=== PATIENT | male | born 1945 | race Caucasian/White ===

== ENCOUNTER 2017-04-15 14:10 | Inpatient (IN) ==
[2017-04-15 15:09] LABS: Basophils % 0.5 %; Eosinophils # 0.2 K/mcL (0.0-0.6); Eosinophils % 2.7 %; Hematocrit 34.7 % (37.5-50.1); Hemoglobin 11.2 g/dL (12.9-16.9); Immature Granulocytes % 0.3 % (0-4); Immature Platelets 2.5 % (1.1-6.1); Lymphocytes # 2.1 K/mcL (0.6-4.6); Lymphocytes % 28.1 %; Mean Corpuscular HGB Conc 32.3 g/dL (31.6-35.5); Mean Corpuscular Hemoglobin 29.8 pg (28.0-33.3); Mean Corpuscular Volume 92.3 fL (83.0-100.0); Mean Platelet Volume 9.6 fL (9.4-12.4); Monocytes # 0.6 K/mcL (0.0-1.3); Monocytes % 8.4 %; Neutrophils # 4.4 K/mcL (1.6-8.9); Platelet Count 258 K/mcL (140-400); Red Blood Count 3.76 M/mcL (4.19-5.50); Red Cell Distribution Width 12.6 % (11.5-14.5)
--- NOTE | 2017-04-15 15:10 | Emergency Department Note ---
Disposition Clinical Impression: Expressive aphasia, ROCHELLE (acute kidney injury) Anemia Qualifiers: Anemia type: unspecified type Qualified Code(s): D64.9 - Anemia, unspecified Disposition: Admitted As Inpatient Condition: Good [facility] - Forms: ED Satisfaction Letter Time of Disposition: 16:16 Neuro HPI - General Chief Complaint: ED Neuro Symptoms/Deficit Stated Complaint: CVA Time Seen by Provider: 04/15/17 14:20 Source: patient, EMS Mode of arrival: EMS Limitations: physical limitation Nursing Notes Reviewed: Yes Vital Signs Reviewed: Yes - History of Present Illness HPI Narrative: Patient is a 71-year-old male with previous stroke that has left him with right- sided upper and lower extremity weakness. He presents today as a transfer from the [facility] due to expressive aphasia and possible facial droop on the right side of his face.. Patient's last known well was around 2200 last night, which is greater than 12 hours prior to arrival. On arrival, patient is in no distress. He is having expressive aphasia, but he is able to understand all questions and shake head yes and no to questioning. He currently denies any chest pain, shortness breath, nausea, vomiting, fevers, diarrhea. He denies any numbness, tingling, weakness. He does admit to not being able to form words. He denies any increase in his right-sided weakness. He denies any weakness in any other limb. - Related Data Home Medications: Home Medications Medication Instructions Recorded Confirmed Aspirin 325 mg PO DAILY 11/11/15 11/11/15 Docusate Sodium [Colace] 100 mg PO BID PRN 11/11/15 11/11/15 Gabapentin [Neurontin] 300 mg PO TID 11/11/15 11/11/15 Lisinopril [Zestril] 40 mg PO DAILY 11/11/15 11/11/15 Magnesium Oxide [Magnesium] 400 mg PO DAILY 11/11/15 11/11/15 Metoprolol Tartrate [Lopressor] 25 mg PO BID 11/11/15 11/11/15 Ranitidine HCl [Zantac] 150 mg PO BID 11/11/15 11/11/15 Terazosin [Hytrin] 5 mg PO HS 11/11/15 11/11/15 amLODIPine [Norvasc] 10 mg PO DAILY 11/11/15 11/11/15 Allergies/Adverse Reactions: Allergies Allergy/AdvReac Type Severity Reaction Status Date / Time No Known Allergies Allergy Verified 11/11/15 02:22 All systems ED: reviewed and negative except as stated. Constitutional: Denies: fever Cardiovascular: Denies: chest pain Respiratory: Denies: dyspnea Gastrointestinal: Denies: abdominal pain, nausea, vomiting, diarrhea, constipation Neurological: Reports: other. Denies: headache, weakness, numbness, confusion Past Medical History - Past Medical History Attestation: Yes The following information was validated with the patient. Source: patient, old records reviewed Medical history: Reports: coronary artery disease, CVA, diabetes, GERD, hypertension, other Surgical history: Reports: coronary bypass (CABG) - Social History Smoking Status: Unknown if ever smoked Smokeless Tobacco Status: No Alcohol use: Reports: none Drug use: Reports: none Physical Exam - General Limitations: no limitations General appearance: alert, in no apparent distress - Head Head exam: atraumatic, normocephalic, normal inspection - Eye Eye exam: Present: normal appearance, PERRL, EOMI - ENT ENT exam: normal exam, normal oropharynx, mucous membranes moist - Neck Neck exam: Present: normal inspection, full ROM, trachea midline - Chest Chest inspection: Present: normal inspection, symmetric chest wall rise - Respiratory Respiratory exam: Present: normal lung sounds bilaterally - Cardiovascular Cardiovascular exam: Present: regular rate, normal rhythm, normal heart sounds - Abdominal Exam Abdominal exam: Present: soft, Non-Tender. Absent: tenderness, distention, guarding, rebound, rigidity - Extremities Exam Extremities exam: Present: other (Contraction of right upper extremity, weakness of right lower extremity the patient states is baseline. No weakness in left upper or left lower extremity.) - Neurological Exam Neurological exam: Present: alert, CN II-XII intact, other ( No facial droop. No decrease in sensation. Weakness of RUE and RLE that is baseline since previous stroke. ) - Psychiatric Psychiatric exam: Present: normal affect, normal mood - Skin Skin exam: Present: warm, dry, intact, normal color Course Course Narrative: Vitals within normal limits. Physical exam shows right upper extremity contraction and regular charmingly weakness that the patient states is baseline since his previous stroke. No facial droop. No weakness in left upper left lower extremity. Patient does have expressive aphasia but is able to understand all questions and respond appropriately to questioning shaking head yes and no. He is 12+ hours out, not a candidate for TPA at this time. We will obtain basic blood work and CT of the head. We will the likely admit for further stroke workup with recommendation of MR head and MRA neck, dopplers carotids. 16:13 basic blood work shows mild anemia at hemoglobin 11.2. Patient has a chaotic. Troponin negative. CT of the head negative for acute intracranial abnormality. There is chronic small vessel changes and a remote lacunar and basal ganglia infarct. Patient's neuro exam is unchanged from presentation. We will admit to the hospitalist for further workup of stroke and expressive aphasia with recommendation of MR head and MRA neck, dopplers carotids. Head CT 04/15/17 14:21 IMPRESSION: 1. No acute intracranial abnormality. 2. Chronic small vessel ischemic changes and evidence of remote lacunar infarcts in the basal ganglia. D/ / Renny Mijares MD / Renny Mijares MD Interpreting Provider: Renny Mijares MD Vital Signs Temperature 98.7 F 04/15/17 14:11 Pulse Rate 59 04/15/17 14:11 Respiratory Rate 18 04/15/17 14:11 Blood Pressure 148/62 04/15/17 14:11 O2 Sat by Pulse Oximetry 92 04/15/17 14:11 Temperature 98.7 F 04/15/17 14:11 Pulse Rate 59 04/15/17 14:11 Respiratory Rate 18 04/15/17 14:11 Blood Pressure 148/62 04/15/17 14:11 O2 Sat by Pulse Oximetry 92 04/15/17 14:11 Oxygen Delivery Oxygen Delivery Room Air Neuro Symptoms/Deficit - MDM Narrative Medical decision making narrative: basic blood work shows mild anemia at hemoglobin 11.2. Patient has a chaotic. Troponin negative. CT of the head negative for acute intracranial abnormality. There is chronic small vessel changes and a remote lacunar and basal ganglia infarct. Patient's neuro exam is unchanged from presentation. We will admit to the hospitalist for further workup of stroke and expressive aphasia with recommendation of MR head and MRA neck, dopplers carotids. - Lab Data Lab results reviewed: Yes I reviewed the patient's lab results. Result diagrams: 04/15/17 15:03 04/15/17 15:03 Lab Results 04/15/17 04/15/17 04/15/17 Range/Units 14:21 15:03 15:03 WBC 7.4 (4.3-11.1) K/mcL RBC 3.76 L (4.19-5.50) M/mcL Hgb 11.2 L (12.9-16.9) g/dL Hct 34.7 L (37.5-50.1) % MCV 92.3 (83.0-100.0) fL MCH 29.8 (28.0-33.3) pg MCHC 32.3 (31.6-35.5) g/dL RDW 12.6 (11.5-14.5) % Plt Count 258 (140-400) K/mcL MPV 9.6 (9.4-12.4) fL Immature Gran % 0.3 (0-4) % Seg Neutrophils % 60.0 % Lymphocytes % 28.1 % Monocytes % 8.4 % Eosinophils % 2.7 % Basophils % 0.5 % Neutrophils # 4.4 (1.6-8.9) K/mcL Lymphocytes # 2.1 (0.6-4.6) K/mcL Monocytes # 0.6 (0.0-1.3) K/mcL Eosinophils # 0.2 (0.0-0.6) K/mcL Basophils # 0.0 (0.0-0.2) K/mcL Immature Plt Fraction 2.5 (1.1-6.1) % PT 12.0 (9.4-12.1) Seconds INR 1.1 APTT 32.7 (26.0-36.0) Seconds Sodium (136-145) mEq/L Potassium (3.5-4.5) mEq/L Chloride (98-109) mEq/L Carbon Dioxide (19-29) mEq/L BUN (8-26) mg/dL Creatinine (0.72-1.25) mg/dL Est GFR ( Amer) (> 60) Est GFR (Non-Af Amer) (> 60) BUN/Creatinine Ratio (6-26) Glucose (70-99) mg/dL POC Glucose 187 H (58-89) Calculated Osmolality (280-300) Calcium (8.6-10.8) mg/dL Troponin I (0-0.03) ng/mL 04/15/17 04/15/17 Range/Units 15:03 15:03 WBC (4.3-11.1) K/mcL RBC (4.19-5.50) M/mcL Hgb (12.9-16.9) g/dL Hct (37.5-50.1) % MCV (83.0-100.0) fL MCH (28.0-33.3) pg MCHC (31.6-35.5) g/dL RDW (11.5-14.5) % Plt Count (140-400) K/mcL MPV (9.4-12.4) fL Immature Gran % (0-4) % Seg Neutrophils % % Lymphocytes % % Monocytes % % Eosinophils % % Basophils % % Neutrophils # (1.6-8.9) K/mcL Lymphocytes # (0.6-4.6) K/mcL Monocytes # (0.0-1.3) K/mcL Eosinophils # (0.0-0.6) K/mcL Basophils # (0.0-0.2) K/mcL Immature Plt Fraction (1.1-6.1) % PT (9.4-12.1) Seconds INR APTT (26.0-36.0) Seconds Sodium 142 (136-145) mEq/L Potassium 4.4 (3.5-4.5) mEq/L Chloride 103 (98-109) mEq/L Carbon Dioxide 30 H (19-29) mEq/L BUN 35 H (8-26) mg/dL Creatinine 1.43 H (0.72-1.25) mg/dL Est GFR ( Amer) 59 L (> 60) Est GFR (Non-Af Amer) 49 L (> 60) BUN/Creatinine Ratio 24 (6-26) Glucose 177 H (70-99) mg/dL POC Glucose (58-89) Calculated Osmolality 306 H (280-300) Calcium 9.9 (8.6-10.8) mg/dL Troponin I 0.01 (0-0.03) ng/mL - Radiology Data Radiology results reviewed: Yes I reviewed the patient's radiology results. Head CT 04/15/17 14:21 IMPRESSION: 1. No acute intracranial abnormality. 2. Chronic small vessel ischemic changes and evidence of remote lacunar infarcts in the basal ganglia. D/ / Renny Mijares MD / Renny Mijares MD Interpreting Provider: Renny Mijares MD Stroke Scale - Level of Consciousness LOC: Alert - LOC Questions LOC Questions: Answers both correctly - LOC Commands LOC Commands: Performs both correctly - Best Gaze Best Gaze: Normal - Visual Visual: No visual loss - Facial Palsy Facial Palsy: Normal - Motor Arms Motor Arm-Left: No drift for 10 seconds Motor Arm-Right: UN Amputation, joint fusion (explain) - Motor Legs Motor Leg-Left: No drift for 5 seconds Motor Leg-Right: No drift for 5 seconds - Limb Ataxia Limb Ataxia: Absent of affected limb too weak to perform exam - Sensory Sensory: Normal - Best Language Best Language: Severe aphasia. Examiner CAN NOT identify pictures from response - Dysarthria Dysarthria: Severe, slurred speech unintelligible or mute - Extinction and Inattention Extinction and Inattention: Normal - NIHSS Total Score NIHSS Total Score: 4 TPA Checklist - LKW: 3-4.5 hrs Add. Warnings/Precautions Patient/family understanding: The patient/family members have been counseled and understood the risk, benefit , and alternatives of treatment. Critical Care Time Critical Care Time: Yes Total Critical Care Time: 35 Attestation: cc time 35 min S.B.A.R. - S.B.A.R. Situation: Demographics, MOA Background: Presenting Complaint, Relevant PMH, Meds, & Allergies Assessment: Vital Signs, Course and respsone to treatment, Exam Concerns, Patient/Family Expectation, Pertinant Lab Results Recommendation: Barrier(s) to disposition, Recommendation based on pending studies, treatments, or consults S.B.A.R. Report Given to: Dr. Bae [email or web address].ASandi Repor Time: 16:16 Attestation Statement - Attestation Attestation: Patient was seen with resident physician. I reviewed the history, physical, assessment and plan, and agree with the findings. I also personally evaluated this patient and had [id number] time with this patient. 71-year-old male presents to the emergency department for the [facility] with worsening stroke symptoms. Patient apparently has had a history of stroke in the past and has right-sided deficiencies in the right upper and lower extremity. But today he developed an expressive aphasia and some droop to the right face. He came to the ED however 12 hours after he initially had symptoms which is out of the TPA window. Patient himself is unable to provide any significant history. On examination vital signs are stable. ENT is unremarkable pupils are reactive. Does have some facial droop on the right side, and an expressive aphasia he answers some questions and can follow commands. Heart regular rhythm and rate. Lungs clear. Abdomen soft and nontender. Extremities patient has flexion contractures of the right upper and lower extremities. But moves all and can follow commands appropriately. Was unable to evaluate for strength because of prior injury. Neurologically as above should be noted that the patient cannot really communicate but he does follow commands and appears alert. ED course head CT scan does not show acute findings. Labs are unremarkable. Vital signs remained stable. Patient not meet criteria for stroke alert. Hospitalist was notified that he will require hospitalization for further evaluation and neurologic workup. They agreed to accept patient for inpatient management. Agree with the resident physician assessment and plan.
[2017-04-15 15:15] LABS: INR 1.1
[2017-04-15 15:18] LABS: Activated Partial Thrombo Time 32.7 Seconds (26.0-36.0)
[2017-04-15 15:21] LABS: Calcium 9.9 mg/dL (8.6-10.8); Potassium 4.4 mEq/L (3.5-4.5)
[2017-04-15] MEDS ORDERED: Acetaminophen 325 MG TABLET PO PRN ×2 (19:26→21:16)
[2017-04-15] MEDS ORDERED: Naloxone 0.4 MG/ML INJ IVP PRN (19:26)
[2017-04-15] MEDS ORDERED: Ondansetron ODT 4 MG TAB.RAPDIS SL PRN (19:26)
[2017-04-15] MEDS ORDERED: *HR* Metoprolol 5 MG/5 ML VIAL IVP PRN (19:40)
[2017-04-15] MEDS ORDERED: Dextrose Gel 15 GM PO PRN ×2 (20:07)
[2017-04-15] MEDS ORDERED: *HR* Dextrose 50 % in Water (Syg) 50 ML SYRINGE IVP PRN (20:07)
[2017-04-15] MEDS ORDERED: D5% in Water 1,000 ML IVC PRN (20:07)
--- NOTE | 2017-04-15 20:15 | Internal Med History&Physical ---
Date of Encounter: 04/15/17 Time of Encounter: 20:08 Assessment and Plan (1) ROCHELLE (acute kidney injury) Current visit: Yes Status: Acute Patient with BUN 35 and Creatinine of 1.43, up from previous normal values. Patient also reportedly with low blood pressure at [facility] this morning. Likely secondary to dehydration. Will hydrate with 0.9NS at 100mL/hr over night. Check UA with reflex culture and micro. Recheck chemistry in the morning. (2) Type 2 diabetes mellitus Current visit: Yes Status: Acute Check Hg A1c check blood sugars ACHS Sliding scale correction insulin ACHS hypoglycemic protocol. Qualifiers: Diabetes mellitus complication status: with unspecified complications Diabetes mellitus meterman insulin use: with meterman use Qualified Code(s) : E11.8 - Type 2 diabetes mellitus with unspecified complications; Z79.4 - assisted (current) use of insulin (3) History of CVA (cerebrovascular accident) Current visit: Yes Status: Chronic Patient with history of CVA with right sided weakness, right sided facial droop and expressive aphasia. Confirmed this is his baseline with patient's and [facility] staff. Will continue his diet of pureed food and honey-thickened liquid. Aspiration precautions. PT/OT and speech therapy consult. Will continue with MRI just to confirm no new infarct as there was a question of new symptoms on initial presentation. (4) Expressive aphasia Current visit: Yes Status: Acute Patient with expressive aphasia, this has been confirmed to be his baseline by his and the staff at the [facility]. Continue home diet of pureed food and honey thickened liquids. Aspiration precautions. Speech therapy evaluation. (5) DVT prophylaxis Current visit: Yes Status: Acute anti-embolic stockings heparin 5000u SQ TID Internal Medicine - H&P: HPI Chief complaint: new expressive aphasia Admitted From: Emergency Dept Plans for Post Hospital Care: Home History of present illness: Mr. Watson is a 71 year old male with hypertension, hyperlipidemia, type 2 diabetes, coronary artery disease status post CABG, history of CVA with right- sided residual weakness, presented to the emergency department today from long- term care at the [place] where he resides with no expressive aphasia. Last known was at 10 PM last evening. Patient is unable to form words, but it is clear he is attempting to and does verbalize sounds. He is able to answer questions with yes or no answers. Patient denies any other complaints at this time. Evaluation emergency department revealed acute kidney injury with creatinine of 1.43 up from previous values normal. Troponin was normal at 0.01. Head CT showed no acute intracranial abnormality, chronic small vessel ischemic changes , and evidence of remote lacunar infarcts in the basal ganglia. On exam, patient is alert, attempting to form words to answer my questions, but unable to. He is able to answer yes and no by shaking his head. Heart has regular rate and rhythm, lungs are clear to auscultation. Right arm is contracted and atrophied, consistent with his history of CVA with right-sided residual. Pupils are equal and reactive to light. Patient does have right sided facial droop. Update: Patient's informed nurse that this is patient's baseline. Nurse called [facility] and confirmed with staff that patient has expressive aphasia at baseline as residual from previous stroke. [facility] reported today's nurse was new and felt patient was more lethargic and his blood pressure was low at 80s/ 40s which was reason to call squad. Will continue with MR of head/brain to confirm no new infarcts, but will cancel consult to neurology. Patient will be able to eat pureed and honey thickened liquid diet. Will treat and work up his ROCHELLE. Past Med Surg Social Fam HX - Past Medical History Medical history: coronary artery disease, CVA, diabetes, GERD, hypertension, other Psychiatric history: no psych history - Past Surgical History Surgical History: coronary bypass (CABG) - Social History Smoking Status: Unknown if ever smoked Smokeless Tobacco Status: No Alcohol use: none Drug use: none - Family History Mother History Unknown: Yes Internal Medicine - H&P: Meds Gabapentin [Neurontin] 600 mg PO TID 11/11/15 [History] Magnesium Oxide [Magnesium] 400 mg PO DAILY 11/11/15 [History] Metoprolol Tartrate [Lopressor] 25 mg PO BID 11/11/15 [History] Acetaminophen 650 mg PO TID PRN MDD 3000MG 04/15/17 [History] Aspirin [Lo-Dose Aspirin EC] 81 mg PO DAILY 04/15/17 [History] Balsam [place] Oil [Venelex Ointment] 1 appl TP QID 04/15/17 [History] Cholecalciferol (D-3) [Vitamin D] 1,000 unit PO DAILY 04/15/17 [History] Clotrimazole 1% CRM [Lotrimin 1%] 1 appl TP BID 04/15/17 [History] Ferrous Sulfate [Iron] 325 mg PO BID 04/15/17 [History] Insulin ASPART [Novolog Flexpen] 2 - 6 unit SQ TID PRN 04/15/17 [History] Insulin Glargine,Hum.rec.anlog [Lantus Solostar] 24 unit SQ DAILY 04/15/17 [ History] Lisinopril [Zestril] 5 mg PO DAILY 04/15/17 [History] Magnesium Hydroxide [Milk of Magnesia] 30 ml PO DAILY PRN 04/15/17 [History] Metformin HCl [Glucophage] 1,000 mg PO BID 04/15/17 [History] Multivitamin [Multi-Day Vitamins] 1 tab PO DAILY 04/15/17 [History] Nystatin POWDER [Nystop] 1 appl TP BID 04/15/17 [History] Ondansetron HCl [Zofran] 4 mg PO Q8H PRN 04/15/17 [History] Rosuvastatin [Crestor] 20 mg PO HS 04/15/17 [History] Selenium Sulfide 1 appl TP DAILY PRN 04/15/17 [History] Sennosides/Docusate Sodium [Senna-Docusate Sodium Tablet] 1 tab PO HS 04/15/17 [ History] Tramadol HCl [Ultram] 50 mg PO QID PRN 04/15/17 [History] metFORMIN [Glucophage] 500 mg PO 1200 04/15/17 [History] Allergies No Known Allergies Allergy (Verified 11/11/15 02:22) ROS unobtainable: other All Systems PM: A 10-system review of systems was performed and is negative for pertinent findings except as documented above in the HPI. Review of systems: Detailed review of systems is unobtainable due to patient's inability to 4 months, he is able to nod yes or no to questions, and does not endorse any problems besides the inability to express words at this time. - Constitutional Vitals: Temp Pulse Resp BP Pulse Ox 97.9 F 57 16 134/57 97 04/15/17 18:48 04/15/17 18:48 04/15/17 18:48 04/15/17 18:48 04/15/17 18:33 General appearance: Present: pleasant, no acute distress - Head Head exam: Present: atraumatic, normocephalic - Eye Eye exam: Present: PERRL, conjuntiva pink, sclera anicteric Pupils: Present: PERRL - Neck Neck exam general surgery: Present: supple, trachea midline. Absent: lymphadenopathy - Respiratory Respiratory exam: Present: CTAB. Absent: accessory muscle use, rales, rhonchi, wheezes - Cardiovascular Cardiovascular exam: Present: RRR, +S1, +S2. Absent: diastolic murmur, gallop, rubs, systolic murmur - GI/Abdominal GI/Abdominal exam: Present: normal bowel sounds, soft, no peritoneal signs. Absent: distended, tenderness - Extremities Exam Extremities exam: Present: warm, radial pulses palpable and symetrical. Absent : calf tenderness, cyanotic, pedal edema - Neurological Exam Neurological exam: Present: facial droop, speech deficit. Absent: strengths equal and symetr throughout - Expanded Neurological Exam Neurological exam expanded: Present: expressive aphasia Speech: Present: expressive aphasia Cranial Nerves: EOM's intact PM: Normal Cerebellar function: finger to nose: Abnormal Right Neuro motor strength exam: LUE: 5, RUE: 2/1 - Skin Skin exam: Present: dry, intact Internal Med - H&P Results - Labs CBC & Chem 7: 04/15/17 15:03 04/15/17 15:03 Labs: All Lab Results (24 Hours) 04/15/17 04/15/17 04/15/17 Range/Units 14:21 15:03 15:03 WBC 7.4 (4.3-11.1) K/mcL RBC 3.76 L (4.19-5.50) M/mcL Hgb 11.2 L (12.9-16.9) g/dL Hct 34.7 L (37.5-50.1) % MCV 92.3 (83.0-100.0) fL MCH 29.8 (28.0-33.3) pg MCHC 32.3 (31.6-35.5) g/dL RDW 12.6 (11.5-14.5) % Plt Count 258 (140-400) K/mcL MPV 9.6 (9.4-12.4) fL Immature Gran % 0.3 (0-4) % Seg Neutrophils % 60.0 % Lymphocytes % 28.1 % Monocytes % 8.4 % Eosinophils % 2.7 % Basophils % 0.5 % Neutrophils # 4.4 (1.6-8.9) K/mcL Lymphocytes # 2.1 (0.6-4.6) K/mcL Monocytes # 0.6 (0.0-1.3) K/mcL Eosinophils # 0.2 (0.0-0.6) K/mcL Basophils # 0.0 (0.0-0.2) K/mcL Immature Plt Fraction 2.5 (1.1-6.1) % PT 12.0 (9.4-12.1) Seconds INR 1.1 APTT 32.7 (26.0-36.0) Seconds Sodium (136-145) mEq/L Potassium (3.5-4.5) mEq/L Chloride (98-109) mEq/L Carbon Dioxide (19-29) mEq/L BUN (8-26) mg/dL Creatinine (0.72-1.25) mg/dL Est GFR ( Amer) (> 60) Est GFR (Non-Af Amer) (> 60) BUN/Creatinine Ratio (6-26) Glucose (70-99) mg/dL POC Glucose 187 H (58-89) Calculated Osmolality (280-300) Calcium (8.6-10.8) mg/dL Troponin I (0-0.03) ng/mL 04/15/17 04/15/17 Range/Units 15:03 15:03 WBC (4.3-11.1) K/mcL RBC (4.19-5.50) M/mcL Hgb (12.9-16.9) g/dL Hct (37.5-50.1) % MCV (83.0-100.0) fL MCH (28.0-33.3) pg MCHC (31.6-35.5) g/dL RDW (11.5-14.5) % Plt Count (140-400) K/mcL MPV (9.4-12.4) fL Immature Gran % (0-4) % Seg Neutrophils % % Lymphocytes % % Monocytes % % Eosinophils % % Basophils % % Neutrophils # (1.6-8.9) K/mcL Lymphocytes # (0.6-4.6) K/mcL Monocytes # (0.0-1.3) K/mcL Eosinophils # (0.0-0.6) K/mcL Basophils # (0.0-0.2) K/mcL Immature Plt Fraction (1.1-6.1) % PT (9.4-12.1) Seconds INR APTT (26.0-36.0) Seconds Sodium 142 (136-145) mEq/L Potassium 4.4 (3.5-4.5) mEq/L Chloride 103 (98-109) mEq/L Carbon Dioxide 30 H (19-29) mEq/L BUN 35 H (8-26) mg/dL Creatinine 1.43 H (0.72-1.25) mg/dL Est GFR ( Amer) 59 L (> 60) Est GFR (Non-Af Amer) 49 L (> 60) BUN/Creatinine Ratio 24 (6-26) Glucose 177 H (70-99) mg/dL POC Glucose (58-89) Calculated Osmolality 306 H (280-300) Calcium 9.9 (8.6-10.8) mg/dL Troponin I 0.01 (0-0.03) ng/mL - Diagnostic Studies CT scan - head Additional comments: Head CT 04/15/17 14:21 IMPRESSION: 1. No acute intracranial abnormality. 2. Chronic small vessel ischemic changes and evidence of remote lacunar infarcts in the basal ganglia. D/ / Renny Mijares MD / Renny Mijares MD Interpreting Provider: Renny Mijares MD
[2017-04-15] MEDS: 0.9 % Sodium Chloride 1,000 ML IVC SCH (21:10)
[2017-04-15] MEDS ORDERED: Ondansetron ODT 4 MG TAB.RAPDIS PO PRN (21:16)
[2017-04-16] MEDS ORDERED: Insulin LISPRO 300 UNITS/3 ML VIAL SQ SCH
[2017-04-16 05:40] LABS: Basophils % 0.5 %; Eosinophils # 0.2 K/mcL (0.0-0.6); Eosinophils % 2.3 %; Hematocrit 34.6 % (37.5-50.1); Hemoglobin 11.2 g/dL (12.9-16.9); Immature Granulocytes % 0.3 % (0-4); Lymphocytes # 1.7 K/mcL (0.6-4.6); Lymphocytes % 26.4 %; Mean Corpuscular HGB Conc 32.4 g/dL (31.6-35.5); Mean Corpuscular Hemoglobin 29.9 pg (28.0-33.3); Mean Corpuscular Volume 92.3 fL (83.0-100.0); Mean Platelet Volume 9.8 fL (9.4-12.4); Monocytes # 0.6 K/mcL (0.0-1.3); Monocytes % 8.3 %; Neutrophils # 4.1 K/mcL (1.6-8.9); Platelet Count 215 K/mcL (140-400); Red Blood Count 3.75 M/mcL (4.19-5.50); Red Cell Distribution Width 12.7 % (11.5-14.5); Segmented Neutrophils % 62.2 %
[2017-04-16] MEDS: 0.9 % Sodium Chloride 1,000 ML IVC SCH ×3 (05:49→17:03)
[2017-04-16 05:52] LABS: BUN/Creatinine Ratio 33 (6-26); Blood Urea Nitrogen 32 mg/dL (8-26); Calcium 9.6 mg/dL (8.6-10.8); Carbon Dioxide 29 mEq/L (19-29); Chloride 108 mEq/L (98-109); Glucose 90 mg/dL (70-99); Osmolality,Calculated 302 (280-300); Potassium 4.3 mEq/L (3.5-4.5); Sodium 143 mEq/L (136-145); eGFR For African Americans > 60 (> 60); eGFR For Non-African Americans > 60 (> 60)
[2017-04-16] MEDS ORDERED: traMADol 50 MG TABLET PO PRN (06:04)
[2017-04-16] MEDS: Insulin LISPRO 300 UNITS/3 ML VIAL SQ SCH ×3 (08:06→17:03)
[2017-04-16] MEDS: Multivit/Ca/Min/Fe/FA 1 TAB TABLET PO SCH (09:26)
[2017-04-16] MEDS: Gabapentin 300 MG CAPSULE PO SCH ×3 (09:26→21:14)
[2017-04-16] MEDS: Aspirin Enteric Coated 81 MG Tablet PO SCH (09:26)
[2017-04-16] MEDS: Magnesium Oxide 400 MG TABLET PO SCH (09:27)
[2017-04-16] MEDS: Insulin DETEMIR 100 UNIT/ML X5UNITS SQ SCH (09:27)
[2017-04-16 13:38] LABS: Bilirubin,Urine Negative (Negative); Blood,Urine Negative (Negative); Clarity,Urine Clear (Clear); Color,Urine Yellow (Yellow); Glucose,Urine (UA) 100 mg/dL (Normal); Ketones,Urine Negative (Negative); Leukocyte Esterase,Urine Negative (Negative); Nitrite,Urine Negative (Negative); Protein,Urine Negative (Neg-Trace); Specific Gravity,Urine 1.015 (1.010-1.025); Urobilinogen,Urine Normal (Normal)
--- NOTE | 2017-04-16 15:25 | Electrocardiograph Report ---
[place] [id number] Test Date: 2017-04-15 Pat Name: Norman Watson Department: 102 Room: 3B Gender: M Silo Tender: Michelet : 1945 Requested By: Richard Lawson Order Number: [id number] Reading MD: Yimi Diaz MD Measurements Intervals [place] Rate: 59 P: 44 MN: 261 QRS: -54 QRSD: 126 T: 30 QT: 416 QTc: 414 Interpretive Statements SINUS BRADYCARDIA WITH FIRST DEGREE AV BLOCK LEFT ANTERIOR FASCICULAR BLOCK Poor R wave progression BASELINE ARTIFACT Electronically Signed On 04-16-2017 15:24:24 EDT by Yimi Diaz MD
--- NOTE | 2017-04-16 17:48 | Internal Med Progress Note ---
<Oliver Kent - Last Filed: 04/16/17 17:58> Date of Encounter: 04/16/17 Time of Encounter: 09:00 - Assessment and plan (1) Acute kidney injury Current Visit: Yes Status: Acute Assessment and plan: -Serum cr 0.96, GFR has gone up to >60. -Appears to be prerenal, we will give fluids and watch closely (2) Hypertension Current Visit: Yes Status: Acute Assessment and plan: -Continue home dose of Metoprolol, lisinopril for now. Consider adding another medication if necessary. Qualifiers: Hypertension type: essential hypertension Qualified Code(s): I10 - Essential (primary) hypertension (3) Hypotension Current Visit: Yes Status: Acute Assessment and plan: Resolved Qualifiers: Hypotension type: unspecified hypotension type Qualified Code(s): I95.9 - Hypotension, unspecified (4) History of CVA (cerebrovascular accident) Current Visit: Yes Status: Chronic Assessment and plan: At neural baseline s/p CVA. Continue to monitor -Continue ASA, statin -MRI was ordered (5) Expressive aphasia Current Visit: Yes Status: Acute Assessment and plan: At baseline s/p CVA (6) Type 2 diabetes mellitus Current Visit: Yes Status: Acute Qualifiers: Diabetes mellitus complication status: with unspecified complications Diabetes mellitus fci insulin use: with fci use Qualified Code(s) : E11.8 - Type 2 diabetes mellitus with unspecified complications; Z79.4 - supervisor intermediates (current) use of insulin (7) DVT prophylaxis Current Visit: Yes Status: Acute Assessment and plan: -SCDs and sq Heparin - Subjective Interval history: Pt resting comfortably in bed at time of exam. He is pleasantly confused and unable to communicate well due to expressive aphasia, but is able to answer yes and no. He denies any acute concerns, chest pains, sob, visual changes. He has no nausea or vomiting. We will continue to monitor - Constitutional Vitals: Temp Pulse Resp BP Pulse Ox 98 F 81 15 173/66 93 04/16/17 15:50 04/16/17 15:50 04/16/17 15:50 04/16/17 15:50 04/16/17 15:50 General appearance: Present: pleasant, no acute distress Exam: General appearance: Present: pleasant, no acute distress - Head Head exam: Present: atraumatic, normocephalic - Eye Eye exam: Present: PERRL, conjuntiva pink, sclera anicteric Pupils: Present: PERRL - Neck Neck exam general surgery: Present: supple, trachea midline. Absent: lymphadenopathy - Respiratory Respiratory exam: Present: CTAB. Absent: accessory muscle use, rales, rhonchi, wheezes - Cardiovascular Cardiovascular exam: Present: RRR, +S1, +S2. Absent: diastolic murmur, gallop, rubs, systolic murmur - GI/Abdominal GI/Abdominal exam: Present: normal bowel sounds, soft, no peritoneal signs. Absent: distended, tenderness - Extremities Exam Extremities exam: Present: warm, radial pulses palpable and symetrical. Absent : calf tenderness, cyanotic, pedal edema - Neurological Exam Neurological exam: Present: facial droop, speech deficit. Absent: strengths equal and symetr throughout - Expanded Neurological Exam Neurological exam expanded: Present: expressive aphasia Speech: Present: expressive aphasia Cranial Nerves: EOM's intact PM: Normal Cerebellar function: finger to nose: Abnormal Right Neuro motor strength exam: LUE: 5, RUE: 2/1 - Skin Skin exam: Present: dry, intact Internal Medicine: Result - Labs CBC & Chem 7: 04/16/17 05:26 04/16/17 05:26 Labs: Short CBC 04/16/17 Range/Units 05:26 WBC 6.6 (4.3-11.1) K/mcL Hgb 11.2 L (12.9-16.9) g/dL Hct 34.6 L (37.5-50.1) % Plt Count 215 (140-400) K/mcL Neutrophils # 4.1 (1.6-8.9) K/mcL BMP 04/16/17 05:26 Sodium 143 Potassium 4.3 Chloride 108 Carbon Dioxide 29 BUN 32 H Creatinine 0.96 Glucose 90 Calcium 9.6 Urine 04/16/17 Range/Units 13:00 Urine Color Yellow (Yellow) Urine Clarity Clear (Clear) Urine pH 7.0 (5.0-8.0) pH Units Ur Specific [place] 1.015 (1.010-1.025) Urine Protein Negative (Neg-Trace) mg/dL Urine Glucose (UA) 100 H (Normal) mg/dL - ABG Interpretation ABG results: PT/INR, D-dimer PT 12.0 Seconds (9.4-12.1) 04/15/17 15:03 - Impressions Impressions Chest X-Ray 04/16/17 06:01 IMPRESSION: Right lower lobe infiltrates likely representing atelectasis rather than pneumonia. D/ / 04/16/2017 07:58:41 Antonio Gray MD / [email or web address] Interpreting Provider: Antonio Gray MD Consult Discharge Plan - Plan [facility]errals: [facility] [Primary Care Provider] - <Richard Lawson Earl - Last Filed: 04/16/17 18:51> Date of Encounter: 04/16/17 - Assessment and plan (1) Hypotension Current Visit: Yes Status: Resolved Qualifiers: Hypotension type: other hypotension type Qualified Code(s): I95.89 - Other hypotension (2) Acute renal failure Current Visit: No Status: Resolved Qualifiers: Acute renal failure type: unspecified Qualified Code(s): N17.9 - Acute kidney failure, unspecified (3) Hypertension Current Visit: Yes Status: Acute Qualifiers: Hypertension type: essential hypertension Qualified Code(s): I10 - Essential (primary) hypertension (4) Type 2 diabetes mellitus Current Visit: Yes Status: Acute Qualifiers: Diabetes mellitus complication status: with unspecified complications Diabetes mellitus fci insulin use: with rat exterminator use Qualified Code(s) : E11.8 - Type 2 diabetes mellitus with unspecified complications; Z79.4 - custodial (current) use of insulin (5) Expressive aphasia Current Visit: Yes Status: Acute (6) Coronary artery disease Current Visit: No Status: Chronic Qualifiers: Coronary Disease-Associated Artery/Lesion type: bypass graft, autologous vein Associated angina: without angina Qualified Code(s): I25.810 - Atherosclerosis of coronary artery bypass graft(s) without angina pectoris - Constitutional Vitals: Temp Pulse Resp BP Pulse Ox 98 F 81 15 173/66 93 04/16/17 15:50 04/16/17 15:50 04/16/17 15:50 04/16/17 15:50 04/16/17 15:50 Internal Medicine: Result - Labs CBC & Chem 7: 04/16/17 05:26 04/16/17 05:26 Labs: Short CBC 04/16/17 Range/Units 05:26 WBC 6.6 (4.3-11.1) K/mcL Hgb 11.2 L (12.9-16.9) g/dL Hct 34.6 L (37.5-50.1) % Plt Count 215 (140-400) K/mcL Neutrophils # 4.1 (1.6-8.9) K/mcL BMP 04/16/17 05:26 Sodium 143 Potassium 4.3 Chloride 108 Carbon Dioxide 29 BUN 32 H Creatinine 0.96 Glucose 90 Calcium 9.6 Urine 04/16/17 Range/Units 13:00 Urine Color Yellow (Yellow) Urine Clarity Clear (Clear) Urine pH 7.0 (5.0-8.0) pH Units Ur Specific [place] 1.015 (1.010-1.025) Urine Protein Negative (Neg-Trace) mg/dL Urine Glucose (UA) 100 H (Normal) mg/dL - ABG Interpretation ABG results: PT/INR, D-dimer PT 12.0 Seconds (9.4-12.1) 04/15/17 15:03 - Impressions Impressions Chest X-Ray 04/16/17 06:01 IMPRESSION: Right lower lobe infiltrates likely representing atelectasis rather than pneumonia. D/ / 04/16/2017 07:58:41 Antonio Gray MD / [email or web address] Interpreting Provider: Antonio Gray MD - Attending Attestation I examined this patient and my medical decision-making was reviewed with the Resident Physician on 04/16/17. I agree with the documented findings, disposition and treatment plan as described except to the extent set forth below. Mr. Watson is currently admitted due to concern for new CVA. He initially was hypotensive with ROCHELLE. He remains moderate to high risk due to potential for worsening neurologic status. Mr. Watson feels OK at this time. Unable to answer me due to expressive aphasia. BP has improved some. No fever or chills. No GI symptoms. Exam Alert. Comfortable Mucus membranes dry Heart reg Lungs clear at this time. Abd soft I/P 1. Hypotension- improving. Continue to monitor. 2. Hypertension 3. ROCHELLE improved 4. DM Further diagnoses and plan as above.
[2017-04-16] MEDS: Sennosides/Docusate Sodium TABLET PO SCH (21:13)
[2017-04-16] MEDS: *HR* Heparin 5,000 UNIT/ML VIAL SQ SCH (21:15)
[2017-04-17 03:53] LABS: Basophils % 0.4 %; Eosinophils # 0.2 K/mcL (0.0-0.6); Eosinophils % 2.6 %; Hematocrit 35.2 % (37.5-50.1); Hemoglobin 11.8 g/dL (12.9-16.9); Immature Granulocytes % 0.3 % (0-4); Lymphocytes # 1.8 K/mcL (0.6-4.6); Lymphocytes % 24.9 %; Mean Corpuscular HGB Conc 33.5 g/dL (31.6-35.5); Mean Corpuscular Hemoglobin 30.2 pg (28.0-33.3); Mean Platelet Volume 10.3 fL (9.4-12.4); Monocytes # 0.6 K/mcL (0.0-1.3); Monocytes % 9.1 %; Neutrophils # 4.4 K/mcL (1.6-8.9); Platelet Count 252 K/mcL (140-400); Red Blood Count 3.91 M/mcL (4.19-5.50); Red Cell Distribution Width 12.6 % (11.5-14.5); Segmented Neutrophils % 62.7 %
[2017-04-17 04:07] LABS: BUN/Creatinine Ratio 26 (6-26); Calcium 9.8 mg/dL (8.6-10.8); Carbon Dioxide 26 mEq/L (19-29); Chloride 110 mEq/L (98-109); Glucose 96 mg/dL (70-99); Osmolality,Calculated 301 (280-300); Potassium 3.7 mEq/L (3.5-4.5); Sodium 144 mEq/L (136-145); eGFR For African Americans > 60 (> 60); eGFR For Non-African Americans > 60 (> 60)
[2017-04-17 04:08] LABS: Blood Urea Nitrogen 21 mg/dL (8-26)
[2017-04-17] MEDS: *HR* Heparin 5,000 UNIT/ML VIAL SQ SCH ×3 (06:13→21:19)
[2017-04-17] MEDS: 0.9 % Sodium Chloride 1,000 ML IVC SCH (06:13)
[2017-04-17] MEDS: Aspirin Enteric Coated 81 MG Tablet PO SCH (08:23)
[2017-04-17] MEDS: Gabapentin 300 MG CAPSULE PO SCH ×3 (08:23→21:16)
[2017-04-17] MEDS: Multivit/Ca/Min/Fe/FA 1 TAB TABLET PO SCH (08:23)
[2017-04-17] MEDS: Magnesium Oxide 400 MG TABLET PO SCH (08:23)
[2017-04-17] MEDS: Insulin LISPRO 300 UNITS/3 ML VIAL SQ SCH ×3 (08:55→16:24)
[2017-04-17] MEDS: Insulin DETEMIR 100 UNIT/ML X5UNITS SQ SCH (10:05)
--- NOTE | 2017-04-17 10:36 | Internal Med Progress Note ---
<Oliver Kent - Last Filed: 04/17/17 14:54> Date of Encounter: 04/17/17 Time of Encounter: 08:45 - Assessment and plan (1) Acute kidney injury Current Visit: Yes Status: Resolved Assessment and plan: -Prerenal azotemia secondary to volume depletion -Serum cr 0.81, GFR has gone up to >60. -ROCHELLE has resolved at this time, fluids will be stopped (2) Hypertension Current Visit: Yes Status: Acute Assessment and plan: -Blood pressure has increased with use of IV fluids -Continue home dose of Metoprolol -Increased dose of Lisinopril to 10mg PO daily in order to achieve stable goal SBP of <160. -Discontinue IV fluids, continue to monitor BP Qualifiers: Hypertension type: essential hypertension Qualified Code(s): I10 - Essential (primary) hypertension (3) Hypotension Current Visit: Yes Status: Resolved Assessment and plan: Resolved Qualifiers: Hypotension type: other hypotension type Qualified Code(s): I95.89 - Other hypotension (4) History of CVA (cerebrovascular accident) Current Visit: Yes Status: Chronic Assessment and plan: At neural baseline s/p CVA. Continue to monitor -Continue ASA, statin -MRI was ordered (5) Expressive aphasia Current Visit: Yes Status: Acute Assessment and plan: -Seemingly at baseline s/p CVA -MRI has been ordered to evaluate any acute changes in neurological condition, however nurses have been unable to get verbal consent from family -Patient will be placed at [facility] pending MRI (6) Type 2 diabetes mellitus Current Visit: Yes Status: Acute Assessment and plan: -On sliding scale insulin Qualifiers: Diabetes mellitus complication status: with unspecified complications Diabetes mellitus alf insulin use: with alf use Qualified Code(s) : E11.8 - Type 2 diabetes mellitus with unspecified complications; Z79.4 - USP (current) use of insulin (7) DVT prophylaxis Current Visit: Yes Status: Acute Assessment and plan: sq Heparin - Subjective Interval history: Pt resting comfortably in bed at time of exam. He is pleasantly confused and unable to communicate well due to expressive aphasia, but is able to answer yes and no. He denies any acute concerns, chest pains, sob, visual changes. He has no nausea or vomiting. We will continue to monitor - Constitutional Vitals: Temp Pulse Resp BP Pulse Ox 97.8 F 66 14 180/69 93 04/17/17 07:51 04/17/17 07:51 04/17/17 07:51 04/17/17 07:51 04/17/17 07:51 General appearance: Present: pleasant, no acute distress Exam: - Head Head exam: Present: atraumatic, normocephalic - Eye Eye exam: Present: PERRL, conjuntiva pink, sclera anicteric Pupils: Present: PERRL - Neck Neck exam general surgery: Present: supple, trachea midline. Absent: lymphadenopathy - Respiratory Respiratory exam: Present: CTAB. Absent: accessory muscle use, rales, rhonchi, wheezes - Cardiovascular Cardiovascular exam: Present: RRR, +S1, +S2. Absent: diastolic murmur, gallop, rubs, systolic murmur - GI/Abdominal GI/Abdominal exam: Present: normal bowel sounds, soft, no peritoneal signs. Absent: distended, tenderness - Extremities Exam Extremities exam: Present: warm, radial pulses palpable and symetrical. Absent : calf tenderness, cyanotic, pedal edema - Neurological Exam Neurological exam: Present: facial droop, speech deficit. Absent: strengths equal and symetr throughout - Expanded Neurological Exam Neurological exam expanded: Present: expressive aphasia Speech: Present: expressive aphasia Cranial Nerves: EOM's intact PM: Normal Cerebellar function: finger to nose: Abnormal Right Neuro motor strength exam: LUE: 5, RUE: 2/1 - Skin Skin exam: Present: dry, intact Internal Medicine: Result - Labs CBC & Chem 7: 04/17/17 03:21 04/17/17 03:21 Labs: Short CBC 04/17/17 Range/Units 03:21 WBC 7.0 (4.3-11.1) K/mcL Hgb 11.8 L (12.9-16.9) g/dL Hct 35.2 L (37.5-50.1) % Plt Count 252 (140-400) K/mcL Neutrophils # 4.4 (1.6-8.9) K/mcL BMP 04/17/17 03:21 Sodium 144 Potassium 3.7 Chloride 110 H Carbon Dioxide 26 BUN 21 D Creatinine 0.81 Glucose 96 Calcium 9.8 Urine 04/16/17 Range/Units 13:00 Urine Color Yellow (Yellow) Urine Clarity Clear (Clear) Urine pH 7.0 (5.0-8.0) pH Units Ur Specific [place] 1.015 (1.010-1.025) Urine Protein Negative (Neg-Trace) mg/dL Urine Glucose (UA) 100 H (Normal) mg/dL - ABG Interpretation ABG results: PT/INR, D-dimer PT 12.0 Seconds (9.4-12.1) 04/15/17 15:03 Consult Discharge Plan - Plan [facility]errals: [facility] [Primary Care Provider[facility] - <Vivek Jauregui - Last Filed: 04/17/17 20:16> Date of Encounter: 04/17/17 - Constitutional Vitals: Temp Pulse Resp BP Pulse Ox 98.0 F 65 15 130/66 94 04/17/17 19:36 04/17/17 19:36 04/17/17 19:36 04/17/17 19:36 04/17/17 19:36 Internal Medicine: Result - Labs CBC & Chem 7: 04/17/17 03:21 04/17/17 03:21 Labs: Short CBC 04/17/17 Range/Units 03:21 WBC 7.0 (4.3-11.1) K/mcL Hgb 11.8 L (12.9-16.9) g/dL Hct 35.2 L (37.5-50.1) % Plt Count 252 (140-400) K/mcL Neutrophils # 4.4 (1.6-8.9) K/mcL BMP 04/17/17 03:21 Sodium 144 Potassium 3.7 Chloride 110 H Carbon Dioxide 26 BUN 21 D Creatinine 0.81 Glucose 96 Calcium 9.8 - ABG Interpretation ABG results: PT/INR, D-dimer PT 12.0 Seconds (9.4-12.1) 04/15/17 15:03 - Impressions Impressions Brain MRI 04/17/17 16:00 IMPRESSION: Motion artifacts. No acute intracranial abnormality. Scattered small old infarctions and small old lacunar infarcts. Mild parenchymal volume loss. Moderate chronic microvascular disease. D/ / Masoud Mckeon MD / Masoud Mckeon MD Interpreting Provider: Masoud Mckeon MD - Attending Attestation I examined this patient and my medical decision-making was reviewed with the Resident Physician. I agree with the documented findings, disposition and treatment plan as described except to the extent set forth below. Awaiting MRI.
[2017-04-17] MEDS: Sennosides/Docusate Sodium TABLET PO SCH (21:16)
[2017-04-18] MEDS: *HR* Heparin 5,000 UNIT/ML VIAL SQ SCH ×3 (06:05→20:55)
[2017-04-18] MEDS: Insulin LISPRO 300 UNITS/3 ML VIAL SQ SCH ×3 (07:40→17:29)
[2017-04-18] MEDS: Gabapentin 300 MG CAPSULE PO SCH ×3 (07:51→20:54)
[2017-04-18] MEDS: Magnesium Oxide 400 MG TABLET PO SCH (07:52)
[2017-04-18] MEDS: Aspirin Enteric Coated 81 MG Tablet PO SCH (07:52)
[2017-04-18] MEDS: Multivit/Ca/Min/Fe/FA 1 TAB TABLET PO SCH (07:52)
[2017-04-18 08:03] LABS: BUN/Creatinine Ratio 25 (6-26); Blood Urea Nitrogen 26 mg/dL (8-26); Calcium 9.9 mg/dL (8.6-10.8); Carbon Dioxide 28 mEq/L (19-29); Chloride 111 mEq/L (98-109); Glucose 79 mg/dL (70-99); Osmolality,Calculated 306 (280-300); Potassium 3.9 mEq/L (3.5-4.5); Sodium 146 mEq/L (136-145); eGFR For African Americans > 60 (> 60); eGFR For Non-African Americans > 60 (> 60)
[2017-04-18] MEDS: Insulin DETEMIR 100 UNIT/ML X5UNITS SQ SCH (10:40)
--- NOTE | 2017-04-18 10:51 | Discharge Summary ---
<Oliver Kent - Last Filed: 04/18/17 13:37> Date of Encounter: 04/18/17 Time of Encounter: 09:00 - Discharge Diagnosis (1) Acute kidney injury Priority: Primary Status: Resolved Comments: ROCHELLE on admission with SCr 1.43, GFR 49. -IV Hydration therapy has successfully resolved his ROCHELLE, and kidney function is now back to baseline. -BP meds were reinitiated (2) Hypertension Priority: Secondary Status: Acute Comments: -BP has returned to normotensive levels, with few instances of HTN overnight -Patient is to be discharged on 10mg Lisinopril, but should be monitored by nursing staff at ECF for episodes of hypotension -Continue metoprolol Qualifiers: Hypertension type: essential hypertension Qualified Code(s): I10 - Essential (primary) hypertension (3) Hypotension Priority: Primary Status: Resolved Comments: -Patient has not been hypotensive over the course of his stay -We will discharge patient on his home meds, and ECF nursing staff should monitor his BP for acute changes. Qualifiers: Hypotension type: other hypotension type Qualified Code(s): I95.89 - Other hypotension (4) History of CVA (cerebrovascular accident) Priority: Primary Status: Chronic Comments: -Right sided muscle weakness with R wrist contracture + expressive aphasia s/p CVA -CT head and MRI brain demonstrate no acute intracranial process. - confirms that current state is neurological baseline. -The patient is to continue Statin, ASA -Patient evaluated by PT/OT/Speech - Speech continues to recommend pureed diet with nectar thick liquid (5) Expressive aphasia Priority: Primary Status: Acute Comments: Patient is at his baseline. See above for hx/of CVA (6) Type 2 diabetes mellitus Priority: Secondary Status: Acute Comments: -Insulin dependent DM2 -The patient has been on basal and sliding scale insulin, and has had well controlled glucose without hypoglycemic events -We will discharge the patient on his home medications and we recommend regular follow up with PCP for DM management. Qualifiers: Diabetes mellitus complication status: with unspecified complications Diabetes mellitus nursing home insulin use: with continuous churn buttermaker use Qualified Code(s) : E11.8 - Type 2 diabetes mellitus with unspecified complications; Z79.4 - continuous churn buttermaker (current) use of insulin - Discharge Medications Home Medications: Gabapentin [Neurontin] 600 mg PO TID 11/11/15 [History] Magnesium Oxide [Magnesium] 400 mg PO DAILY 11/11/15 [History] Metoprolol Tartrate [Lopressor] 25 mg PO BID 11/11/15 [History] Acetaminophen 650 mg PO TID PRN MDD 3000MG 04/15/17 [History] Aspirin [Lo-Dose Aspirin EC] 81 mg PO DAILY 04/15/17 [History] Balsam [place] Oil [Venelex Ointment] 1 appl TP QID 04/15/17 [History] Cholecalciferol (D-3) [Vitamin D] 1,000 unit PO DAILY 04/15/17 [History] Clotrimazole 1% CRM [Lotrimin 1%] 1 appl TP BID 04/15/17 [History] Ferrous Sulfate [Iron] 325 mg PO BID 04/15/17 [History] Insulin ASPART [Novolog Flexpen] 2 - 6 unit SQ TID PRN 04/15/17 [History] Insulin Glargine,Hum.rec.anlog [Lantus Solostar] 24 unit SQ DAILY 04/15/17 [ History] Magnesium Hydroxide [Milk of Magnesia] 30 ml PO DAILY PRN 04/15/17 [History] Metformin HCl [Glucophage] 1,000 mg PO BID 04/15/17 [History] Multivitamin [Multi-Day Vitamins] 1 tab PO DAILY 04/15/17 [History] Nystatin POWDER [Nystop] 1 appl TP BID 04/15/17 [History] Ondansetron HCl [Zofran] 4 mg PO Q8H PRN 04/15/17 [History] Rosuvastatin [Crestor] 20 mg PO HS 04/15/17 [History] Selenium Sulfide 1 appl TP DAILY PRN 04/15/17 [History] Sennosides/Docusate Sodium [Senna-Docusate Sodium Tablet] 1 tab PO HS 04/15/17 [ History] Tramadol HCl [Ultram] 50 mg PO QID PRN 04/15/17 [History] metFORMIN [Glucophage] 500 mg PO 1200 04/15/17 [History] Lisinopril [Zestril] 10 mg PO DAILY tab 04/18/17 [Rx] Allergies/Adverse Reactions: Allergies No Known Allergies Allergy (Verified 11/11/15 02:22) Procedures/tests Complete & Pending: Procedures Performed prior 72 hours Category Date Time Status head/brain wo con [MR] Routine MRI 04/17/17 16:00 Completed ECG 12 lead ECG [ECG] Routine Y 04/16/17 14:24 Completed Date of admission: 04/15/17 16:22 [facility] care physician: [facility] Consults: 04/15/17 19:28 Consult to Speech Therapy [CONS] Routine Comment: Evaluate, develop and implement POC Reason for Consult: new expressive aphasia, history of CVA with right sided weakness. Please complete a swallow evaluation Call Completed: No - Patient Status Disposition: Transfer LTC Condition: Good Functional capacity at discharge: independent ambulation Overall status at discharge: patient is back to baseline - Discharge Instructions Follow Up With: [facility] [Primary Care Provider] - Additional Instructions: Patient should follow-up with PCP for management of chronic conditions. - Diet and Activity Activity: as per physical therapy, increase activity as tolerated Diet: diabetic diet (Pureed foods, [place] thick liquids) Hospital course: Mr. Watson is a 71 year old male with history of CVA w/ motor defecits on the Right and expressive aphasia, CAD, HTN, and DM who is a patient at the [facility]. He was sent to the ED on 04/15 for hypotension (80/40) and lethargy as noted by the nurse at the ECF, and on arrival he was noted to have right sided muscle weakness, facial droop, and expressive aphasia. At that time he was worked up for acute intracranial pathology, and it was later explained by his that these issues are chronic s/p CVA, and that he was at his baseline neural function. A CT of the head demonstrated no acute intracranial problems, and a call to the [place] nurse confirmed the 's statement that this is his baseline neural function. The patient was normotensive on arrival with a BP of 134/57, but was mildyly bradycardic with a rate of 57. He was admitted to the hospital, and an MRI was ordered. His BP meds were held. He was found to have an ROCHELLE, and fluids were administered. Over his hospital stay, fluid resuscitation succefully increased his BP, and his renal function returned to normal. BP meds were reinitiated, and the patient remained mildly hypertensive. His lisinopril was increased from 5mg to 10mg, and the patient began to have well-controlled hypertension. An MRI of the brain demonstrated no acute intracranial process, and confirmed remote lacunar infarcts. The patient is stable, and is prepared for discharge back to the [facility] where he has been accepted, per [employer]. - Time Spent with Patient Total time spent providing and/or coordinating discharge services: - Constitutional Vitals: Temp Pulse Resp BP Pulse Ox 98.7 F 59 14 130/62 90 04/18/17 06:43 04/18/17 10:43 04/18/17 06:43 04/18/17 10:43 04/18/17 06:43 General appearance: Present: pleasant, no acute distress Exam: - Head Head exam: Present: atraumatic, normocephalic - Eye Eye exam: Present: PERRL, conjuntiva pink, sclera anicteric Pupils: Present: PERRL - Neck Neck exam general surgery: Present: supple, trachea midline. Absent: lymphadenopathy - Respiratory Respiratory exam: Present: CTAB. Absent: accessory muscle use, rales, rhonchi, wheezes - Cardiovascular Cardiovascular exam: Present: RRR, +S1, +S2. Absent: diastolic murmur, gallop, rubs, systolic murmur - GI/Abdominal GI/Abdominal exam: Present: normal bowel sounds, soft, no peritoneal signs. Absent: distended, tenderness - Extremities Exam Extremities exam: Present: warm, radial pulses palpable and symetrical. Absent : calf tenderness, cyanotic, pedal edema - Neurological Exam Neurological exam: Present: facial droop, speech deficit. Absent: strengths equal and symetr throughout - Expanded Neurological Exam Neurological exam expanded: Present: expressive aphasia Speech: Present: expressive aphasia Cranial Nerves: EOM's intact PM: Normal Cerebellar function: finger to nose: Abnormal Right Neuro motor strength exam: LUE: 5, RUE: 2/1 - Skin Skin exam: Present: dry, intact - VTE Documentation of Mechanical Device: Intermittent pneumatic compression device <Vivek Jauregui - Last Filed: 04/18/17 18:35> Date of Encounter: 04/18/17 Procedures/tests Complete & Pending: Procedures Performed prior 72 hours Category Date Time Status MR head/brain wo con [MR] Routine MRI 04/17/17 16:00 Completed ECG 12 lead ECG [ECG] Routine Y 04/16/17 14:24 Completed Date of admission: 04/15/17 16:22 Primary care physician: [facility] Consults: 04/15/17 19:28 Consult to Speech Therapy [CONS] Routine Comment: Evaluate, develop and implement POC Reason for Consult: new expressive aphasia, history of CVA with right sided weakness. Please complete a swallow evaluation Call Completed: No Hospital course: Mr. Watson is a 71 year old male - Time Spent with Patient Total time spent providing and/or coordinating discharge services: - Constitutional Vitals: Temp Pulse Resp BP Pulse Ox 98.2 F 56 15 148/62 92 04/18/17 10:56 04/18/17 10:56 04/18/17 10:56 04/18/17 10:56 04/18/17 15:13 - Attending Attestation I examined this patient and my medical decision-making was reviewed with the Resident Physician. I agree with the documented findings, disposition and treatment plan as described except to the extent set forth below.
[2017-04-18] MEDS: Sennosides/Docusate Sodium TABLET PO SCH (20:54)
[2017-04-19] MEDS: *HR* Heparin 5,000 UNIT/ML VIAL SQ SCH (05:43)
[2017-04-19 08:00] VITALS: BP 132/64
[2017-04-19] MEDS: Aspirin Enteric Coated 81 MG Tablet PO SCH (10:12)
[2017-04-19] MEDS: Gabapentin 300 MG CAPSULE PO SCH (10:12)
[2017-04-19] MEDS: Magnesium Oxide 400 MG TABLET PO SCH (10:12)
[2017-04-19] MEDS: Multivit/Ca/Min/Fe/FA 1 TAB TABLET PO SCH (10:12)
[2017-04-19] MEDS: Insulin DETEMIR 100 UNIT/ML X5UNITS SQ SCH (10:24)
== END 2017-04-19 11:37 | DRG 57 ==
LOC: EMEROO 14:10 → SUATTDRO 16:22 → 3BNU 16:22
PROVIDERS: ADMIT Nurse Practitioner Family; ATTEND Internal Medicine

== ENCOUNTER 2017-09-24 23:51 | Inpatient (IN) ==
[2017-09-25] MEDS ORDERED: 0.9 % Sodium Chloride 1,000 ML IVC ONE (00:02)
[2017-09-25 00:14] LABS: Basophils % 0.2 %; Eosinophils # 0.1 K/mcL (0.0-0.6); Eosinophils % 0.6 %; Hematocrit 33.4 % (37.5-50.1); Hemoglobin 10.5 g/dL (12.9-16.9); Immature Granulocytes % 0.5 % (0-4); Lymphocytes # 1.2 K/mcL (0.6-4.6); Lymphocytes % 7.2 %; Mean Corpuscular HGB Conc 31.4 g/dL (31.6-35.5); Mean Corpuscular Hemoglobin 29.2 pg (28.0-33.3); Mean Platelet Volume 9.4 fL (9.4-12.4); Monocytes # 0.7 K/mcL (0.0-1.3); Monocytes % 4.3 %; Platelet Count 312 K/mcL (140-400); Red Blood Count 3.59 M/mcL (4.19-5.50); Red Cell Distribution Width 13.5 % (11.5-14.5); Segmented Neutrophils % 87.2 %
--- NOTE | 2017-09-25 00:17 | Emergency Department Note ---
Disposition Clinical Impression: Healthcare-associated pneumonia, Hypoxia Fever Qualifiers: Fever type: unspecified Qualified Code(s): R50.9 - Fever, unspecified Disposition: Admitted As Inpatient Condition: Fair General Adult HPI - General Chief complaint: ED Fever Stated complaint: fever, poss aspiration pneumonia Time Seen by Provider: 09/24/17 23:56 Source: EMS Limitations: age Nursing Notes Reviewed: Yes Vital Signs Reviewed: Yes - History of Present Illness HPI Narrative: 71-year-old male with past medical history of prior stroke approximately 6 months ago with residual weakness and as such resides in the [place] [facility], he presents with hypoxia, and tachycardia. The patient denies any current symptoms however he does have difficulty speaking after his stroke. The [facility] reports that his SPO2 is in the mid 80s on room air but is up in the mid 90s on 2 L nasal cannula. He does not usually wear oxygen. He does have past medical history of diabetes, hypertension, hyperlipidemia, prior stroke. The patient denies having any pain. Pain Scale: 0 Improves with: nothing Worsens with: nothing Associated symptoms: Reports: denies other symptoms Treatments Prior to Arrival: none - Related Data Home Medications Medication Instructions Recorded Confirmed Gabapentin [Neurontin] 600 mg PO TID 11/11/15 09/25/17 Metoprolol Tartrate [Lopressor] 12.5 mg PO BID 11/11/15 09/25/17 Acetaminophen 650 mg PO TID PRN MDD 3000MG 04/15/17 09/25/17 Aspirin [Lo-Dose Aspirin EC] 81 mg PO DAILY 04/15/17 04/15/17 Balsam [place] Oil [Venelex 1 appl TP QID 04/15/17 04/15/17 Ointment] Cholecalciferol (D-3) [Vitamin D] 1,000 unit PO DAILY 04/15/17 04/15/17 Insulin ASPART [Novolog Flexpen] 6 unit SQ TID PRN 04/15/17 09/25/17 Insulin Glargine,Hum.rec.anlog 32 unit SQ DAILY 04/15/17 09/25/17 [Lantus Solostar] Sennosides/Docusate Sodium 1 tab PO BID 04/15/17 09/25/17 [Senna-Docusate Sodium Tablet] metFORMIN [Glucophage] 500 mg PO TID 04/15/17 09/25/17 Apixaban [Eliquis] 5 mg PO BID 09/25/17 09/25/17 Aspirin 81 mg PO DAILY 09/25/17 09/25/17 Atorvastatin [Lipitor] 10 mg PO HS 09/25/17 09/25/17 Polyethylene Glycol 3350 [MiraLAX] 17 gm PO DAILY 09/25/17 09/25/17 Previous Rx's Medication Instructions Recorded Lisinopril [Zestril] 10 mg PO DAILY tab 04/18/17 Allergies Allergy/AdvReac Type Severity Reaction Status Date / Time No Known Allergies Allergy Verified 11/11/15 02:22 All systems ED: reviewed and negative except as stated. Limitations: ROS unobtainable due to patients medical condition Constitutional: Reports: fever Cardiovascular: Denies: chest pain Respiratory: Denies: sputum production Musculoskeletal: Denies: back pain Integumentary: Denies: rash Past Medical History - Past Medical History Medical history: Reports: coronary artery disease, CVA, diabetes, GERD, hyperlipidemia, hypertension, other Surgical history: Reports: coronary bypass (CABG) Psychiatric history: Reports: no psych history - Social History Smoking Status: Unknown if ever smoked Smokeless Tobacco Status: No Alcohol use: Reports: none Drug use: Reports: none Physical Exam - General Limitations: age General appearance: alert, in no apparent distress - Head Head exam: atraumatic - Eye Eye exam: Present: normal appearance, PERRL - ENT ENT exam: normal exam, normal oropharynx - Neck Neck exam: Present: normal inspection - Respiratory Respiratory exam: Present: normal lung sounds bilaterally. Absent: respiratory distress - Cardiovascular Cardiovascular exam: Present: regular rate, normal rhythm - Abdominal Exam Abdominal exam: Present: soft, Non-Tender - Extremities Exam Extremities exam: Present: normal inspection - Neurological Exam Neurological exam: Present: alert - Psychiatric Psychiatric exam: Present: normal affect, normal mood - Skin Skin exam: Present: warm, dry Course Course Narrative: febrile, and elevated WBC count, and hypoxia, and pneumonia on CXR. Lactate not elevated. Not hypotensive. Will treat for HCAP. No resp distress. Requiring only 2L NC to maintain O2 sat. Vital Signs Temperature 100.7 F H 09/24/17 23:56 Pulse Rate 87 09/24/17 23:56 Respiratory Rate 22 09/24/17 23:56 Blood Pressure 170/69 09/24/17 23:56 O2 Sat by Pulse Oximetry 92 09/24/17 23:56 Temperature 100.7 F H 09/24/17 23:56 Pulse Rate 89 09/25/17 01:30 Respiratory Rate 18 09/25/17 01:30 Blood Pressure 155/73 09/25/17 01:30 O2 Sat by Pulse Oximetry 96 09/25/17 01:30 Oxygen Delivery Oxygen Delivery Nasal Cannula Medical Decision Making - Medical Records Medical records reviewed: Yes I reviewed the patient's medical records. - Lab Data Lab results reviewed: Yes I reviewed the patient's lab results. Result diagrams: 09/24/17 23:55 09/24/17 23:55 Lab Results 09/24/17 09/24/17 09/24/17 Range/Units 23:55 23:55 23:55 WBC 16.0 H (4.3-11.1) K/mcL RBC 3.59 L (4.19-5.50) M/mcL Hgb 10.5 L (12.9-16.9) g/dL Hct 33.4 L (37.5-50.1) % MCV 93.0 (83.0-100.0) fL MCH 29.2 (28.0-33.3) pg MCHC 31.4 L (31.6-35.5) g/dL RDW 13.5 (11.5-14.5) % Plt Count 312 (140-400) K/mcL MPV 9.4 (9.4-12.4) fL Immature Gran % 0.5 (0-4) % Seg Neutrophils % 87.2 % Lymphocytes % 7.2 % Monocytes % 4.3 % Eosinophils % 0.6 % Basophils % 0.2 % Neutrophils # 14.0 H (1.6-8.9) K/mcL Lymphocytes # 1.2 (0.6-4.6) K/mcL Monocytes # 0.7 (0.0-1.3) K/mcL Eosinophils # 0.1 (0.0-0.6) K/mcL Basophils # 0.0 (0.0-0.2) K/mcL PT 13.5 H (9.4-12.1) Seconds INR 1.2 APTT 34.1 (26.0-36.0) Seconds ABG pH (7.32-7.45) pH Units ABG pCO2 (35-45) mmHg ABG pO2 (85-104) mmHg ABG HCO3 (21-27) mEq/L ABG Total CO2 (20-26) mEq/L ABG O2 Saturation (95-98) % ABG Base Excess (-2 to 3) mEq/L Sodium 143 (136-145) mEq/L Potassium 5.0 (3.5-5.1) mEq/L Chloride 108 H (98-107) mEq/L Carbon Dioxide 28 (23-29) mEq/L BUN 38 H (8-23) mg/dL Creatinine 1.03 (0.70-1.30) mg/dL Est GFR ( Amer) > 60 (> 60) Est GFR (Non-Af Amer) > 60 (> 60) BUN/Creatinine Ratio 37 H (6-26) Glucose 166 H (70-105) mg/dL Calculated Osmolality 309 H (280-300) Lactic Acid (0.5-2.2) mmol/L Calcium 9.2 (8.6-10.3) mg/dL Phosphorus 2.5 L (2.7-4.5) mg/dL Magnesium 1.6 (1.6-2.6) mg/dL Total Bilirubin 0.2 L (0.3-1.0) mg/dL Direct Bilirubin 0.0 (0.0-0.2) mg/dL Indirect Bilirubin 0.2 (0.0-1.2) mg/dL AST 9 L (13-39) Units/L ALT 7 (7-52) Units/L Alkaline Phosphatase 71 (34-104) Units/L Troponin I (< 0.04) ng/mL Serum Total Protein 6.8 (6.4-8.9) g/dL Albumin 3.3 L (3.5-5.7) g/dL Globulin 3.5 (2.4-3.5) g/dL Albumin/Globulin Ratio 0.9 L (1.1-2.2) Urine Color (Yellow) Urine Clarity (Clear) Urine pH (5.0-8.0) pH Units Ur Specific [place] (1.010-1.025) Urine Protein (Neg-Trace) mg/dL Urine Glucose (UA) (Normal) mg/dL Urine Ketones (Negative) mg/dL Urine Blood (Negative) Urine Nitrite (Negative) Urine Bilirubin (Negative) Urine Urobilinogen (Normal) mg/dL Ur Leukocyte Esterase (Negative) Urine Microscopic RBC (0-3) per hpf Urine Microscopic WBC (0-3) per hpf Ur Squamous Epith Cells (None-Few) per lpf Urine Bacteria (None-Few) per hpf Hyaline Casts (None-Few) per lpf Ur Culture Indicated? (NO) 09/24/17 09/24/17 09/25/17 Range/Units 23:55 23:55 00:44 WBC (4.3-11.1) K/mcL RBC (4.19-5.50) M/mcL Hgb (12.9-16.9) g/dL Hct (37.5-50.1) % MCV (83.0-100.0) fL MCH (28.0-33.3) pg MCHC (31.6-35.5) g/dL RDW (11.5-14.5) % Plt Count (140-400) K/mcL MPV (9.4-12.4) fL Immature Gran % (0-4) % Seg Neutrophils % % Lymphocytes % % Monocytes % % Eosinophils % % Basophils % % Neutrophils # (1.6-8.9) K/mcL Lymphocytes # (0.6-4.6) K/mcL Monocytes # (0.0-1.3) K/mcL Eosinophils # (0.0-0.6) K/mcL Basophils # (0.0-0.2) K/mcL PT (9.4-12.1) Seconds INR APTT (26.0-36.0) Seconds ABG pH (7.32-7.45) pH Units ABG pCO2 (35-45) mmHg ABG pO2 (85-104) mmHg ABG HCO3 (21-27) mEq/L ABG Total CO2 (20-26) mEq/L ABG O2 Saturation (95-98) % ABG Base Excess (-2 to 3) mEq/L Sodium (136-145) mEq/L Potassium (3.5-5.1) mEq/L Chloride (98-107) mEq/L Carbon Dioxide (23-29) mEq/L BUN (8-23) mg/dL Creatinine (0.70-1.30) mg/dL Est GFR ( Amer) (> 60) Est GFR (Non-Af Amer) (> 60) BUN/Creatinine Ratio (6-26) Glucose (70-105) mg/dL Calculated Osmolality (280-300) Lactic Acid 1.5 (0.5-2.2) mmol/L Calcium (8.6-10.3) mg/dL Phosphorus (2.7-4.5) mg/dL Magnesium (1.6-2.6) mg/dL Total Bilirubin (0.3-1.0) mg/dL Direct Bilirubin (0.0-0.2) mg/dL Indirect Bilirubin (0.0-1.2) mg/dL AST (13-39) Units/L ALT (7-52) Units/L Alkaline Phosphatase (34-104) Units/L Troponin I < 0.03 (< 0.04) ng/mL Serum Total Protein (6.4-8.9) g/dL Albumin (3.5-5.7) g/dL Globulin (2.4-3.5) g/dL Albumin/Globulin Ratio (1.1-2.2) Urine Color Yellow (Yellow) Urine Clarity Clear (Clear) Urine pH 7.0 (5.0-8.0) pH Units Ur Specific [place] 1.019 (1.010-1.025) Urine Protein Trace (Neg-Trace) mg/dL Urine Glucose (UA) Normal (Normal) mg/dL Urine Ketones Negative (Negative) mg/dL Urine Blood Negative (Negative) Urine Nitrite Negative (Negative) Urine Bilirubin Negative (Negative) Urine Urobilinogen Normal (Normal) mg/dL Ur Leukocyte Esterase Negative (Negative) Urine Microscopic RBC 0-3 (0-3) per hpf Urine Microscopic WBC 0-3 (0-3) per hpf Ur Squamous Epith Cells Many H (None-Few) per lpf Urine Bacteria None Seen (None-Few) per hpf Hyaline Casts None Seen (None-Few) per lpf Ur Culture Indicated? NO (NO) 09/25/17 Range/Units 01:13 WBC (4.3-11.1) K/mcL RBC (4.19-5.50) M/mcL Hgb (12.9-16.9) g/dL Hct (37.5-50.1) % MCV (83.0-100.0) fL MCH (28.0-33.3) pg MCHC (31.6-35.5) g/dL RDW (11.5-14.5) % Plt Count (140-400) K/mcL MPV (9.4-12.4) fL Immature Gran % (0-4) % Seg Neutrophils % % Lymphocytes % % Monocytes % % Eosinophils % % Basophils % % Neutrophils # (1.6-8.9) K/mcL Lymphocytes # (0.6-4.6) K/mcL Monocytes # (0.0-1.3) K/mcL Eosinophils # (0.0-0.6) K/mcL Basophils # (0.0-0.2) K/mcL PT (9.4-12.1) Seconds INR APTT (26.0-36.0) Seconds ABG pH 7.43 (7.32-7.45) pH Units ABG pCO2 34 L (35-45) mmHg ABG pO2 76 L (85-104) mmHg ABG HCO3 23 (21-27) mEq/L ABG Total CO2 24 (20-26) mEq/L ABG O2 Saturation 96 (95-98) % ABG Base Excess -1 (-2 to 3) mEq/L Sodium (136-145) mEq/L Potassium (3.5-5.1) mEq/L Chloride (98-107) mEq/L Carbon Dioxide (23-29) mEq/L BUN (8-23) mg/dL Creatinine (0.70-1.30) mg/dL Est GFR ( Amer) (> 60) Est GFR (Non-Af Amer) (> 60) BUN/Creatinine Ratio (6-26) Glucose (70-105) mg/dL Calculated Osmolality (280-300) Lactic Acid (0.5-2.2) mmol/L Calcium (8.6-10.3) mg/dL Phosphorus (2.7-4.5) mg/dL Magnesium (1.6-2.6) mg/dL Total Bilirubin (0.3-1.0) mg/dL Direct Bilirubin (0.0-0.2) mg/dL Indirect Bilirubin (0.0-1.2) mg/dL AST (13-39) Units/L ALT (7-52) Units/L Alkaline Phosphatase (34-104) Units/L Troponin I (< 0.04) ng/mL Serum Total Protein (6.4-8.9) g/dL Albumin (3.5-5.7) g/dL Globulin (2.4-3.5) g/dL Albumin/Globulin Ratio (1.1-2.2) Urine Color (Yellow) Urine Clarity (Clear) Urine pH (5.0-8.0) pH Units Ur Specific [place] (1.010-1.025) Urine Protein (Neg-Trace) mg/dL Urine Glucose (UA) (Normal) mg/dL Urine Ketones (Negative) mg/dL Urine Blood (Negative) Urine Nitrite (Negative) Urine Bilirubin (Negative) Urine Urobilinogen (Normal) mg/dL Ur Leukocyte Esterase (Negative) Urine Microscopic RBC (0-3) per hpf Urine Microscopic WBC (0-3) per hpf Ur Squamous Epith Cells (None-Few) per lpf Urine Bacteria (None-Few) per hpf Hyaline Casts (None-Few) per lpf Ur Culture Indicated? (NO) - Radiology Data Radiology results reviewed: Yes I reviewed the patient's radiology results.
[2017-09-25 00:24] LABS: INR 1.2; Prothrombin Time 13.5 Seconds (9.4-12.1)
[2017-09-25 00:27] LABS: Activated Partial Thrombo Time 34.1 Seconds (26.0-36.0)
[2017-09-25 00:50] LABS: Bilirubin,Urine Negative (Negative); Blood,Urine Negative (Negative); Clarity,Urine Clear (Clear); Color,Urine Yellow (Yellow); Glucose,Urine (UA) Normal (Normal); Ketones,Urine Negative (Negative); Leukocyte Esterase,Urine Negative (Negative); Nitrite,Urine Negative (Negative); Protein,Urine Trace mg/dL (Neg-Trace); Specific Gravity,Urine 1.019 (1.010-1.025); Urobilinogen,Urine Normal (Normal)
[2017-09-25 00:52] LABS: Bacteria,Urine None Seen per hpf (None-Few); Hyaline Casts,Urine None Seen per lpf (None-Few); RBC,Urine 0-3 per hpf (0-3); Squamous Epithelial Cell,Urine Many per lpf (None-Few); WBC,Urine 0-3 per hpf (0-3)
--- NOTE | 2017-09-25 01:12 | Emergency Department Note ---
START Narrative - START START: I examined this patient and my medical decision-making was reviewed with the Resident Physician. I agree with the documented findings, disposition and treatment plan as described except to the extent set forth below. 71 year old male from [facility] presents to the ED with complaints of fevers, possible aspiration pnuemoina vs c.diff diarrhea. Yara appears to be at baseline for neurological status. Yara was tachyardiac at senior living and hypoxic tothe mid 80% on RA and he hassan snot typically require supplemental ozygen and then placed on 2 LNC and is now at 92%. We ill do sepsis workup on yara and admit to medicine
[2017-09-25] MEDS ORDERED: Piperacillin/Tazobactam 3.375 GM in Water for inj. (sterile) 20 ML IVP ONE (01:15)
[2017-09-25] MEDS ORDERED: Levofloxacin 750 MG/150 ML 750 MG/150 ML BAG IVPB ONE (01:15)
[2017-09-25] MEDS ORDERED: Vancomycin 1,500 MG in D5% in Water 250 ML IVPB ONE (01:15)
[2017-09-25 01:29] LABS: ABG Base Excess -1 mEq/L (-2 to 3); ABG HCO3 23 mEq/L (21-27); ABG Oxygen Saturation 96 % (95-98); ABG PCO2 34 mmHg (35-45); ABG PH 7.43 pH Units (7.32-7.45); ABG PO2 76 mmHg (85-104); ABG TCO2 24 mEq/L (20-26)
[2017-09-25 01:48] LABS: Alanine Aminotransferase 7 Units/L (7-52); Albumin 3.3 g/dL (3.5-5.7); Albumin/Globulin Ratio 0.9 (1.1-2.2); Alkaline Phosphatase 71 Units/L (34-104); Aspartate Amino Transferase 9 Units/L (13-39); BUN/Creatinine Ratio 37 (6-26); Bilirubin,Indirect 0.2 mg/dL (0.0-1.2); Bilirubin,Total 0.2 mg/dL (0.3-1.0); Blood Urea Nitrogen 38 mg/dL (8-23); Calcium 9.2 mg/dL (8.6-10.3); Carbon Dioxide 28 mEq/L (23-29); Chloride 108 mEq/L (98-107); Globulin 3.5 g/dL (2.4-3.5); Glucose 166 mg/dL (70-105); Magnesium 1.6 mg/dL (1.6-2.6); Osmolality,Calculated 309 (280-300); Phosphorous 2.5 mg/dL (2.7-4.5); Sodium 143 mEq/L (136-145); Total Protein 6.8 g/dL (6.4-8.9); eGFR For African Americans > 60 (> 60); eGFR For Non-African Americans > 60 (> 60)
[2017-09-25] MEDS ORDERED: Acetaminophen 325 MG TABLET PO PRN (03:41)
--- NOTE | 2017-09-25 03:58 | Internal Med History&Physical ---
Date of Encounter: 09/25/17 Time of Encounter: 03:57 Assessment and Plan (1) Acute respiratory failure with hypoxia Current visit: Yes Status: Acute Supplemental O2 as needed, Continue vancomycin, Zosyn. Add Azithromycin 500 mg for 3 days to cover atypical pneumonia. Keep NPO for now in case patient aspirating. (2) Sepsis due to pneumonia Current visit: Yes Status: Acute Continue emperic therapy vancomycin, Zosyn, azithromycin. Follow-up blood cultures obtained in ED. Obtain sputum culture, Strep and Legionella antigens, mycoplasma, procalcitonin. Continue IV fluid hydration. Keep patient NPO, possible that patient is aspirating. (3) Dysphagia, post-stroke Current visit: Yes Status: Acute NPO, speech therapy for swallow eval. (4) Healthcare-associated pneumonia Current visit: Yes Status: Acute (5) Essential hypertension Current visit: Yes Status: Acute Resume low dose lisinopril. Will have close monitoring as patient septic but not in shock. (6) Diarrhea Current visit: Yes Status: Acute C diff negative. Obtain stool culture. Continue IV fluids. Qualifiers: Diarrhea type: unspecified type Qualified Code(s): R19.7 - Diarrhea, unspecified (7) Type 2 diabetes mellitus Current visit: No Status: Acute insulin sliding scale, NPO for now until speech eval. Qualifiers: Diabetes mellitus complication status: with unspecified complications Diabetes mellitus manager terminal insulin use: with care home use Qualified Code(s) : E11.8 - Type 2 diabetes mellitus with unspecified complications; Z79.4 - senior living (current) use of insulin Internal Medicine - H&P: HPI History of present illness: Mr. Watson is a 71 year old male with history of CVA, DM, dysphasia, DM, HTN, HPL presented as a transfer from [facility] due to hypoxia, fevers, tachycardia. Patient is high aspiration risk as he has dysphasia post CVA and usually cannot tolerate solid foods. He currently denies CP, SOB, N/V, cough. When he arrived to [facility] he was found to be febrile and tachycardic and hypoxic in the 80s. He was transferred here for further management. In the ED patient had WBC elevated at 16, febrile at 100.7 F, BP elevated at 170/69 , HR 78 bpm. A chest xray showed bilateral airspace disease. He was given 1 L normal saline and blood cultures obtained in ED, and given dose of Vanc/Zosyn/ Levaquin. Lactic acid and creatinine were within normal limits. Now saturating 96% SpO2 on 2L NC. Past Med Surg Social Fam HX - Past Medical History Medical history: coronary artery disease, CVA, diabetes, GERD, hyperlipidemia, hypertension, other Psychiatric history: no psych history - Past Surgical History Surgical History: coronary bypass (CABG) - Social History Smoking Status: Unknown if ever smoked Smokeless Tobacco Status: No Alcohol use: none Drug use: none - Family History Mother Living Status: Still Living Hx Family Cardiac Disorders: Yes Internal Medicine - H&P: Meds Gabapentin [Neurontin] 600 mg PO TID 11/11/15 [History] Metoprolol Tartrate [Lopressor] 12.5 mg PO BID 11/11/15 [History] Acetaminophen 650 mg PO TID PRN MDD 3000MG 04/15/17 [History] Aspirin [Lo-Dose Aspirin EC] 81 mg PO DAILY 04/15/17 [History] Balsam [place] Oil [Venelex Ointment] 1 appl TP QID 04/15/17 [History] Cholecalciferol (D-3) [Vitamin D] 1,000 unit PO DAILY 04/15/17 [History] Insulin ASPART [Novolog Flexpen] 6 unit SQ TID PRN 04/15/17 [History] Insulin Glargine,Hum.rec.anlog [Lantus Solostar] 32 unit SQ DAILY 04/15/17 [ History] Sennosides/Docusate Sodium [Senna-Docusate Sodium Tablet] 1 tab PO BID 04/15/17 [History] metFORMIN [Glucophage] 500 mg PO TID 04/15/17 [History] Lisinopril [Zestril] 10 mg PO DAILY tab 04/18/17 [Rx] Apixaban [Eliquis] 5 mg PO BID 09/25/17 [History] Aspirin 81 mg PO DAILY 09/25/17 [History] Atorvastatin [Lipitor] 10 mg PO HS 09/25/17 [History] Polyethylene Glycol 3350 [MiraLAX] 17 gm PO DAILY 09/25/17 [History] 3 Allergy/AdvReac Type Severity Reaction Status Date / Time No Known Allergies Allergy Verified 11/11/15 02:22 All Systems PM: A 10-system review of systems was performed and is negative for pertinent findings except as documented above in the HPI. Review of systems: Limited as patient has speech impairment at baseline. - Constitutional Constitutional: fever(s) - Cardiovascular Cardiovascular ROS IM: no chest pain - Respiratory Respiratory: no cough, no dyspnea - Gastrointestinal Gastrointestinal: no abdominal pain, no diarrhea, no hematemesis, no hematochezia, no melena, no nausea, no vomiting - Genitourinary Genitourinary ROS male: no difficulty urinating, no dysuria - Constitutional Vitals: Temp Pulse Resp BP Pulse Ox 98.6 F 78 19 118/61 95 09/25/17 02:55 09/25/17 02:55 09/25/17 02:55 09/25/17 02:55 09/25/17 02:55 General appearance: Present: no acute distress Exam: - Head Head exam: atraumatic - Eye Eye exam: Present: normal appearance, PERRL - ENT ENT exam: normal exam, normal oropharynx - Neck Neck exam: Present: normal inspection - Respiratory Respiratory exam: Present: normal lung sounds bilaterally. Absent: respiratory distress - Cardiovascular Cardiovascular exam: Present: regular rate, normal rhythm - Abdominal Exam Abdominal exam: Present: soft, Non-Tender - Extremities Exam Extremities exam: Present: normal inspection - Neurological Exam Neurological exam: Present: alert - Psychiatric Psychiatric exam: Present: normal affect, normal mood - Skin Skin exam: Present: warm, dry Internal Med - H&P Results - Labs CBC & Chem 7: 09/24/17 23:55 09/24/17 23:55
[2017-09-25] MEDS ORDERED: Vancomycin 1,000 MG in D5% in Water 250 ML IVPB SCH (04:00)
[2017-09-25] MEDS ORDERED: Naloxone 0.4 MG/ML INJ IVP PRN (04:21)
[2017-09-25] MEDS ORDERED: Ondansetron 4 MG/2 ML VIAL IVP PRN (04:21)
[2017-09-25] MEDS: Azithromycin 500 MG in D5% in Water 250 ML IVPB SCH (05:54)
[2017-09-25] MEDS: *HR* Heparin 5,000 UNIT/ML VIAL SQ SCH ×3 (05:54→16:34)
[2017-09-25] MEDS: 0.9 % Sodium Chloride 1,000 ML IVC SCH ×2 (05:54→16:29)
[2017-09-25] MEDS ORDERED: Aminoglycoside Consult 1 EACH MC ONE (10:46)
[2017-09-25] MEDS: Insulin DETEMIR 100 UNIT/ML X5UNITS SQ SCH (10:58)
[2017-09-25] MEDS: Piperacillin/Tazobactam 3.375 GM/200 ML BAG IVPB SCH ×2 (10:59→18:38)
[2017-09-25] MEDS: Aspirin 81 MG TAB.CHEW PO SCH (12:19)
[2017-09-25] MEDS: Apixaban 5 MG TABLET PO SCH ×2 (12:20→21:01)
[2017-09-25] MEDS: Gabapentin 300 MG CAPSULE PO SCH ×3 (12:20→21:03)
[2017-09-25] MEDS: Cholecalciferol (D-3) 1,000 UNIT TABLET PO SCH (12:20)
[2017-09-25] MEDS: CASTOR OIL APPL TP SCH ×4 (12:26→21:03)
[2017-09-25] MEDS: BALSAM PERU TP SCH ×4 (12:26→21:03)
--- NOTE | 2017-09-25 13:02 | Event Note ---
Date of Encounter: 09/25/17 Time of Encounter: 10:30 Patient is lying in bed. Comfortable. Feels better today. Failed speech therapy evaluation this morning and is scheduled to have a modified barium swallow done later today. Keep nothing by mouth. Nutrition consult to start tube feeds through G-tube. We will also change medications for they can be given through his G-tube. Continue current antibiotics. Most likely aspiration /healthcare associated pneumonia. We will also check respiratory infection panel.
[2017-09-25] MEDS: Insulin LISPRO 300 UNITS/3 ML VIAL SQ SCH (16:30)
--- NOTE | 2017-09-25 16:52 | Electrocardiograph Report ---
[place] [id number] Test Date: 2017-09-24 Pat Name: Norman Watson Department: 104 Room: 2NE20 Gender: M Tier Truck Driver: GARETT : 1945 Requested By: Yimi Blanton Order Number: [id number] Reading MD: Yimi Diaz MD Measurements Intervals [place] Rate: 89 P: 70 TN: 161 QRS: -64 QRSD: 126 T: 64 QT: 368 QTc: 415 Interpretive Statements SINUS RHYTHM LEFT ANTERIOR FASCICULAR BLOCK BASELINE ARTIFACT Electronically Signed On 09-25-2017 16:51:14 EST by Yimi Diaz MD
[2017-09-25] MEDS ORDERED: *HR* Dextrose 50 % in Water (Syg) 50 ML SYRINGE ONE (20:48)
[2017-09-25] MEDS ORDERED: Insulin LISPRO 300 UNITS/3 ML VIAL SQ SCH (21:00)
[2017-09-25] MEDS ORDERED: *HR* Dextrose 50 % in Water (Syg) 50 ML SYRINGE IVP ONE (21:03)
[2017-09-25] MEDS ORDERED: 0.9 % Sodium Chloride 1,000 ML IVC SCH (21:05)
[2017-09-26] MEDS ORDERED: Vancomycin 1,250 MG in D5% in Water 250 ML IVPB SCH (02:00)
[2017-09-26] MEDS: Piperacillin/Tazobactam 3.375 GM/200 ML BAG IVPB SCH ×2 (02:03→10:00)
[2017-09-26 05:59] LABS: Basophils % 0.3 %; Eosinophils # 0.1 K/mcL (0.0-0.6); Eosinophils % 2.3 %; Hematocrit 28.2 % (37.5-50.1); Immature Granulocytes % 0.7 % (0-4); Lymphocytes # 1.1 K/mcL (0.6-4.6); Lymphocytes % 17.2 %; Mean Corpuscular HGB Conc 31.9 g/dL (31.6-35.5); Mean Corpuscular Hemoglobin 29.3 pg (28.0-33.3); Mean Corpuscular Volume 91.9 fL (83.0-100.0); Mean Platelet Volume 9.6 fL (9.4-12.4); Monocytes # 0.4 K/mcL (0.0-1.3); Monocytes % 6.2 %; Neutrophils # 4.5 K/mcL (1.6-8.9); Platelet Count 265 K/mcL (140-400); Red Blood Count 3.07 M/mcL (4.19-5.50); Red Cell Distribution Width 13.7 % (11.5-14.5); Segmented Neutrophils % 73.3 %
[2017-09-26] MEDS: *HR* Heparin 5,000 UNIT/ML VIAL SQ SCH (06:04)
[2017-09-26] MEDS: Azithromycin 500 MG in D5% in Water 250 ML IVPB SCH (06:05)
[2017-09-26 06:19] LABS: BUN/Creatinine Ratio 32 (6-26); Blood Urea Nitrogen 27 mg/dL (8-23); Calcium 8.7 mg/dL (8.6-10.3); Carbon Dioxide 28 mEq/L (23-29); Chloride 112 mEq/L (98-107); Glucose 76 mg/dL (70-105); Osmolality,Calculated 300 (280-300); Sodium 143 mEq/L (136-145); eGFR For African Americans > 60 (> 60); eGFR For Non-African Americans > 60 (> 60)
[2017-09-26] MEDS: Insulin DETEMIR 100 UNIT/ML X5UNITS SQ SCH (07:00)
[2017-09-26] MEDS: Insulin LISPRO 300 UNITS/3 ML VIAL SQ SCH ×2 (10:38→12:45)
[2017-09-26] MEDS: Cholecalciferol (D-3) 1,000 UNIT TABLET PO SCH (10:41)
[2017-09-26] MEDS: Aspirin 81 MG TAB.CHEW PO SCH (10:42)
[2017-09-26] MEDS: BALSAM PERU TP SCH ×2 (10:42→14:27)
[2017-09-26] MEDS: CASTOR OIL APPL TP SCH ×2 (10:42→14:27)
[2017-09-26] MEDS: Gabapentin 300 MG CAPSULE PO SCH (10:42)
[2017-09-26] MEDS: Apixaban 5 MG TABLET PO SCH ×2 (10:42→19:49)
[2017-09-26] MEDS ORDERED: Cholecalciferol (D-3) 1,000 UNIT TABLET PO SCH (15:12)
[2017-09-26] MEDS: Gabapentin 300 MG CAPSULE GTUBE SCH ×2 (16:28→19:49)
--- NOTE | 2017-09-26 17:45 | Internal Med Progress Note ---
Date of Encounter: 09/26/17 Time of Encounter: 11:45 - Assessment and plan (1) Sepsis due to pneumonia Current Visit: Yes Status: Acute Assessment and plan: Most likely aspiration pneumonia due to gastric contents/tube feeds. Patient is clinically doing better. Chest x-ray shows persistent bibasilar opacity which could be atelectasis or infiltrate. Will complete a 7 day antibiotic course. We will also provide patient with incentive spirometry. (2) Acute respiratory failure with hypoxia Current Visit: Yes Status: Acute Assessment and plan: Patient is currently on 2 L nasal cannula. Doing well overall. Denies any shortness of breath. Likely due to aspiration. Wean as tolerated (3) Diarrhea Current Visit: Yes Status: Acute Assessment and plan: Most likely functional diarrhea due to use of tube feeds. C. difficile stool negative. Will treat symptomatically. Qualifiers: Diarrhea type: unspecified type Qualified Code(s): R19.7 - Diarrhea, unspecified (4) Dysphagia, post-stroke Current Visit: Yes Status: Acute Assessment and plan: Speech therapy recommends keeping patient nothing by mouth. Continue tube feeds. Aspiration precautions. (5) Essential hypertension Current Visit: Yes Status: Chronic Assessment and plan: Blood pressure elevated today. We will monitor for now as he was hypotensive yesterday. If remains persistently elevated, can increase metoprolol dosage. (6) Healthcare-associated pneumonia Current Visit: Yes Status: Acute Assessment and plan: Due to aspiration. Continue Zosyn. We will stop vancomycin (7) Stage II decubitus ulcer Current Visit: Yes Status: Acute Assessment and plan: Present on admission. Continue local wound care Qualifiers: Pressure ulcer location: buttock Laterality: right Qualified Code(s): L89.312 - Pressure ulcer of right buttock, stage 2 (8) Type 2 diabetes mellitus Current Visit: Yes Status: Acute Assessment and plan: Blood sugars are rising up now that patient has been continued feeds. We will increase sliding scale coverage. Qualifiers: Diabetes mellitus complication status: with unspecified complications Diabetes mellitus residential insulin use: with residential use Qualified Code(s) : E11.8 - Type 2 diabetes mellitus with unspecified complications; Z79.4 - rodent exterminator (current) use of insulin - Subjective Interval history: Patient is awake and alert. Doing well overall. Denies any shortness of breath. No fever or chills reported overnight. Tolerating tube feeds well - Constitutional Vitals: Temp Pulse Resp BP Pulse Ox 98 F 72 18 155/87 92 09/26/17 16:00 09/26/17 16:00 09/26/17 16:00 09/26/17 16:00 09/26/17 16:00 General appearance: Present: cooperative, pleasant, no acute distress, answers questions appropriately - Neck Neck exam general surgery: Present: supple, trachea midline. Absent: lymphadenopathy - Respiratory Respiratory exam: Present: CTAB. Absent: accessory muscle use, rales, rhonchi, wheezes - Cardiovascular Cardiovascular exam: Present: RRR, +S1, +S2. Absent: diastolic murmur, gallop, rubs, systolic murmur - GI/Abdominal GI/Abdominal exam: Present: normal bowel sounds, soft, no peritoneal signs. Absent: distended, tenderness Additional comments: G-tube in place - Extremities Exam Extremities exam: Present: warm, radial pulses palpable and symmetrical. Absent : calf tenderness, cyanotic, pedal edema - Neurological Exam Neurological exam: Present: alert, oriented X3, no focal deficits. Absent: facial droop, speech deficit - Skin Skin exam: Present: dry, intact Internal Medicine: Result - Labs CBC & Chem 7: 09/26/17 05:13 09/26/17 05:13 Labs: Short CBC 09/26/17 Range/Units 05:13 WBC 6.1 D (4.3-11.1) K/mcL Hgb 9.0 L D (12.9-16.9) g/dL Hct 28.2 L (37.5-50.1) % Plt Count 265 (140-400) K/mcL Neutrophils # 4.5 (1.6-8.9) K/mcL BMP 09/26/17 05:13 Sodium 143 Potassium 4.0 Chloride 112 H Carbon Dioxide 28 BUN 27 H Creatinine 0.84 Glucose 76 Calcium 8.7 - ABG Interpretation ABG results: ABG ABG pH 7.43 pH Units (7.32-7.45) 09/25/17 01:13 ABG pCO2 34 mmHg (35-45) L 09/25/17 01:13 ABG pO2 76 mmHg (85-104) L 09/25/17 01:13 ABG O2 Saturation 96 % (95-98) 12/26/17 01:13 PT/INR, D-dimer PT 13.5 Seconds (9.4-12.1) H 09/24/17 23:55 - Impressions Impressions Chest X-Ray 09/26/17 15:05 IMPRESSION: Minimal basilar opacity persists, similar compared the previous exam D/ / Yon Null MD / Yon Null MD Interpreting Provider: Yon Null MD Consult Discharge Plan - Plan [facility]errals[facility]Primary Care Provider[facility] -
[2017-09-26] MEDS ORDERED: Insulin LISPRO 300 UNITS/3 ML VIAL SQ SCH ×2 (17:55→21:00)
[2017-09-26] MEDS: metroNIDAZOLE 500 MG TABLET GTUBE SCH (19:49)
[2017-09-26] MEDS: Lactobacillus 1 EACH CAP.SPRINK GTUBE SCH (19:49)
[2017-09-27 05:06] LABS: Basophils % 0.3 %; Eosinophils # 0.2 K/mcL (0.0-0.6); Eosinophils % 2.4 %; Hematocrit 31.5 % (37.5-50.1); Hemoglobin 10.3 g/dL (12.9-16.9); Immature Granulocytes % 0.4 % (0-4); Lymphocytes # 1.3 K/mcL (0.6-4.6); Lymphocytes % 18.2 %; Mean Corpuscular HGB Conc 32.7 g/dL (31.6-35.5); Mean Corpuscular Hemoglobin 29.4 pg (28.0-33.3); Mean Platelet Volume 9.4 fL (9.4-12.4); Monocytes # 0.5 K/mcL (0.0-1.3); Monocytes % 7.2 %; Neutrophils # 5.1 K/mcL (1.6-8.9); Platelet Count 319 K/mcL (140-400); Red Cell Distribution Width 13.5 % (11.5-14.5); Segmented Neutrophils % 71.5 %
[2017-09-27 05:11] LABS: BUN/Creatinine Ratio 26 (6-26); Blood Urea Nitrogen 22 mg/dL (8-23); Calcium 9.2 mg/dL (8.6-10.3); Carbon Dioxide 28 mEq/L (23-29); Chloride 107 mEq/L (98-107); Glucose 251 mg/dL (70-105); Osmolality,Calculated 302 (280-300); Potassium 4.2 mEq/L (3.5-5.1); Sodium 140 mEq/L (136-145); eGFR For African Americans > 60 (> 60); eGFR For Non-African Americans > 60 (> 60)
[2017-09-27 06:26] VITALS: BP 125/55
[2017-09-27] MEDS: metroNIDAZOLE 500 MG TABLET GTUBE SCH (08:06)
[2017-09-27] MEDS: Lactobacillus 1 EACH CAP.SPRINK GTUBE SCH (08:07)
[2017-09-27] MEDS: Apixaban 5 MG TABLET PO SCH (08:07)
[2017-09-27] MEDS: Gabapentin 300 MG CAPSULE GTUBE SCH (08:09)
[2017-09-27] MEDS: Insulin DETEMIR 100 UNIT/ML X5UNITS SQ SCH (08:34)
[2017-09-27] MEDS ORDERED: levoFLOXacin 750 MG TABLET GTUBE SCH (09:00)
[2017-09-27] MEDS ORDERED: Aspirin 81 MG TAB.CHEW GTUBE SCH (09:00)
--- NOTE | 2017-09-27 10:17 | Discharge Summary ---
Date of Encounter: 09/27/17 Time of Encounter: 10:11 - Discharge Diagnosis (1) Acute respiratory failure with hypoxia Priority: Primary Status: Acute (2) Sepsis due to pneumonia Priority: Secondary Status: Acute (3) Diarrhea Priority: Secondary Status: Acute Qualifiers: Diarrhea type: unspecified type Qualified Code(s): R19.7 - Diarrhea, unspecified (4) Dysphagia, post-stroke Priority: Secondary Status: Acute (5) Essential hypertension Priority: Secondary Status: Chronic (6) Healthcare-associated pneumonia Priority: Secondary Status: Acute (7) Stage II decubitus ulcer Priority: Secondary Status: Acute Qualifiers: Pressure ulcer location: buttock Laterality: right Qualified Code(s): L89.312 - Pressure ulcer of right buttock, stage 2 (8) Type 2 diabetes mellitus Priority: Secondary Status: Acute Qualifiers: Diabetes mellitus complication status: with unspecified complications Diabetes mellitus extermination inspector insulin use: with extermination inspector use Qualified Code(s) : E11.8 - Type 2 diabetes mellitus with unspecified complications; Z79.4 - [facility] (current) use of insulin - Discharge Medications Prescriptions: levoFLOXacin [Levaquin] 750 mg GTUBE DAILY #5 tablet metroNIDAZOLE [Flagyl] 500 mg GTUBE TID #15 tablet Home Medications: Insulin ASPART [Novolog Flexpen] 6 unit SQ TID PRN 04/15/17 [History] Insulin Glargine,Hum.rec.anlog [Lantus Solostar] 32 unit SQ DAILY 04/15/17 [ History] Sennosides/Docusate Sodium [Senna-Docusate Sodium Tablet] 1 tab PO BID 04/15/17 [History] metFORMIN [Glucophage] 500 mg PO TID 04/15/17 [History] Acetaminophen 650 mg GTUBE TID PRN #0 MDD 3000MG 09/27/17 [Rx] Apixaban [Eliquis] 5 mg GTUBE BID #0 09/27/17 [Rx] Aspirin 81 mg GTUBE DAILY #0 09/27/17 [Rx] Atorvastatin [Lipitor] 10 mg GTUBE HS #0 09/27/17 [Rx] Cholecalciferol (D-3) [Vitamin D] 1,000 unit GTUBE DAILY tablet 09/27/17 [Rx] Gabapentin [Neurontin] 600 mg GTUBE TID #0 09/27/17 [Rx] Lactobacillus [Culturelle] 1 each GTUBE BID cap.sprink 09/27/17 [Rx] Lisinopril [Zestril] 10 mg GTUBE DAILY #0 tab 09/27/17 [Rx] Metoprolol Tartrate [Lopressor] 12.5 mg GTUBE BID #0 09/27/17 [Rx] Polyethylene Glycol 3350 [MiraLAX] 17 gm GTUBE DAILY #0 09/27/17 [Rx] levoFLOXacin [Levaquin] 750 mg GTUBE DAILY #5 tablet 09/27/17 [Rx] metroNIDAZOLE [Flagyl] 500 mg GTUBE TID #15 tablet 09/27/17 [Rx] Allergies/Adverse Reactions: 3 Allergy/AdvReac Type Severity Reaction Status Date / Time No Known Allergies Allergy Verified 11/11/15 02:22 Date of admission: 09/25/17 04:21 Primary care physician: [facility]CP [place] Consults: 09/25/17 11:59 Consult to Nutrition [CONS] Routine Comment: Consulting Provider: NUTRITION Reason for Dietary Consult: Tube Feed Start & Manage Discharging clinician: Michelle Shaffer Anticipated date of discharge: 09/27/17 - Patient Status Disposition: Transfer [facility] Condition: Fair Functional capacity at discharge: bed bound Overall status at discharge: patient is progressing back to baseline - Discharge Instructions Instructions: Metronidazole (By mouth), Levofloxacin (By mouth), Acute Respiratory Distress Syndrome (DC), Acute Kidney Injury (DC), Diabetes Mellitus Type 2 in Adults (DC), Sepsis (DC), Chronic Dysphagia (DC), Chronic Hypertension (DC), Anemia (GEN), Pneumonia (DC) Follow [facility]: [facility] [[facility] Care Provider[facility] - (in 1 week) - Diet and Activity Activity: as per physical therapy, increase activity as tolerated Diet: other (tube feeds bolus 1 can Glucerna 1.5 Q4H via PEG tube to total 6 cans x 24 hrs; Free water 90 ml free water before and after each feeding and 180 ml Q3Hr ) Hospital course: Mr. Watson is a 71 year old male patient who was transferred here from the [facility] after an apparent as preservative aspiration along with respiratory failure. He was placed on supplemental oxygen and was started on treatment for aspiration pneumonia with IV antibiotics. Since he was in healthcare facility, he was also placed on coverage for MRSA. Patient has a history of dysphagia related to recent stroke and receives tube feeds through PEG tube. Patient had been having diarrhea prior to presentation. His stool was tested for C. difficile and was negative. She also has history of diabetes, hypertension and hyperlipidemia. Patient's symptoms quickly improved over the next day and she was back to baseline. His white count normalized. He has not had any further episodes of fever. Chest x-ray shows right basal opacities concerning for acute paresis or pneumonia. His pro calcitonin level was 0.12 showing a mild infection. Presently he is no longer requiring oxygen and is back to baseline. He is tolerating tube feeds well. He has been evaluated by speech therapy and recommended to be strictly nothing by mouth. All his medications have now been transitioned to be given only through G-tube. He needs to contact me continued on aspiration precautions. Clinically, he is stable to be discharged back to long-[facility] care at the [place]. He will be discharged once he is accepted. He will complete short antibiotic course with Levaquin and Flagyl. - Time Spent with Patient Total time spent providing and/or coordinating discharge services: Greater than 30 minutes (35 min) - Constitutional Vitals: Temp Pulse Resp BP Pulse Ox 98.2 F 71 15 125/55 94 09/27/17 06:23 09/27/17 06:23 09/27/17 06:23 09/27/17 06:23 09/27/17 06:23 General appearance: Present: cooperative, pleasant, no acute distress, answers questions appropriately - Neck Neck exam general surgery: Present: supple, trachea midline. Absent: lymphadenopathy - Respiratory Respiratory exam: Present: CTAB. Absent: accessory muscle use, rales, rhonchi, wheezes - Cardiovascular Cardiovascular exam: Present: RRR, +S1, +S2. Absent: diastolic murmur, gallop, rubs, systolic murmur - GI/Abdominal GI/Abdominal exam: Present: normal bowel sounds, soft, no peritoneal signs. Absent: distended, tenderness - Extremities Exam Extremities exam: Present: warm, radial pulses palpable and symmetrical. Absent : calf tenderness, cyanotic, pedal edema - Neurological Exam Neurological exam: Present: alert, CN II-XII intact, oriented X3, no focal deficits. Absent: facial droop, speech deficit - Skin Skin exam: Present: dry, intact
--- NOTE | 2017-09-27 10:23 | Physician Discharge Referral ---
ExtendedCare Referral Info Provider in Charge after Transfer: PCP Institutional Level of Care: Skilled - Diagnosis (1) Acute respiratory failure with hypoxia Priority: Primary Status: Acute (2) Sepsis due to pneumonia Priority: Secondary Status: Acute (3) Diarrhea Priority: Secondary Status: Acute (4) Dysphagia, post-stroke Priority: Secondary Status: Acute (5) Essential hypertension Priority: Secondary Status: Chronic (6) Healthcare-associated pneumonia Priority: Secondary Status: Acute (7) Stage II decubitus ulcer Priority: Secondary Status: Acute (8) Type 2 diabetes mellitus Priority: Secondary Status: Acute Prognosis: Fair Aware of Diagnosis: Patient Aware of Prognosis: Patient - Transfer Medications Prescriptions: levoFLOXacin [Levaquin] 750 mg GTUBE DAILY #5 tablet metroNIDAZOLE [Flagyl] 500 mg GTUBE TID #15 tablet Home Medications: Insulin ASPART [Novolog Flexpen] 6 unit SQ TID PRN 04/15/17 [History] Insulin Glargine,Hum.rec.anlog [Lantus Solostar] 32 unit SQ DAILY 04/15/17 [ History] Sennosides/Docusate Sodium [Senna-Docusate Sodium Tablet] 1 tab PO BID 04/15/17 [History] metFORMIN [Glucophage] 500 mg PO TID 04/15/17 [History] Acetaminophen 650 mg GTUBE TID PRN #0 MDD 3000MG 09/27/17 [Rx] Apixaban [Eliquis] 5 mg GTUBE BID #0 09/27/17 [Rx] Aspirin 81 mg GTUBE DAILY #0 09/27/17 [Rx] Atorvastatin [Lipitor] 10 mg GTUBE HS #0 09/27/17 [Rx] Cholecalciferol (D-3) [Vitamin D] 1,000 unit GTUBE DAILY tablet 09/27/17 [Rx] Gabapentin [Neurontin] 600 mg GTUBE TID #0 09/27/17 [Rx] Lactobacillus [Culturelle] 1 each GTUBE BID cap.sprink 09/27/17 [Rx] Lisinopril [Zestril] 10 mg GTUBE DAILY #0 tab 09/27/17 [Rx] Metoprolol Tartrate [Lopressor] 12.5 mg GTUBE BID #0 09/27/17 [Rx] Polyethylene Glycol 3350 [MiraLAX] 17 gm GTUBE DAILY #0 09/27/17 [Rx] levoFLOXacin [Levaquin] 750 mg GTUBE DAILY #5 tablet 09/27/17 [Rx] metroNIDAZOLE [Flagyl] 500 mg GTUBE TID #15 tablet 09/27/17 [Rx] Allergies/Adverse Reactions: 3 Allergy/AdvReac Type Severity Reaction Status Date / Time No Known Allergies Allergy Verified 11/11/15 02:22 - Respiratory Orders Smoking Cessation: Smoking cessation has been advised. For more information, call the [employer] Quit Line at 2-229-DUZW-NOW. - Ancillary Orders May consult with Dentist, Freight Weigher, Pipeline Controller PRN - Advance Directives Code Status: Full Code - Mobility Orders Bedrest - Rehabiliation Orders Rehab Potential: Fair Rehab Orders: Evaluation for Physical Therapy, Evaluation for Occupational Therapy, Evaluation for Speech Therapy - Diet Orders Tube Feedings (type/amount/rate): Tube feeds bolus 1 can Glucerna 1.5 Q4H via PEG tube to total 6 cans x 24 hrs; Flush Tube (type/amount/frequency): Free water 90 ml free water before and after each feeding and 180 ml Q3Hr CERTIFICATION: I certify that the transfer of the above named patient to an Extended Care Facility is necessary for the continuing treatment of the diagnosis listed. The above information is true and accurate reflection of patient's current condition. Confidential - Redisclosure prohibited without a patient's written consent.
[2017-09-27 11:47] LABS: Mycoplasma pneumoniae IgG 0.13 U/L (<=0.09)
== END 2017-09-27 12:00 | DRG 871 ==
LOC: 2NENU 23:51 → EMEROO 23:51 → 2NENU 09-25 02:22 → SUATTDRO 09-25 04:21
PROVIDERS: ADMIT Internal Medicine; ATTEND Internal Medicine